=== PATIENT | male | born 1955 | race Caucasian/White ===

== ENCOUNTER 2017-12-31 14:17 | Emergency (ER) | payer MEDICARE ==
[~2017-12-31] VITALS: Ht 175.3 cm; Wt 113.4 kg
[2017-12-31] MEDS ORDERED: Magnesium 1GM/D5W 100ML PREMIX 200 ML IV ONE (14:38)
[2017-12-31] MEDS ORDERED: Magnesium 1GM/D5W 100ML PREMIX PIGGYBACK IV ONE (14:38)
--- NOTE | 2017-12-31 14:40 | NUR ---
62 Y/O MALE PLACED IN BED 12 C/O SOB. SEEN AT [facility] YESTERDAY FOR SAME COMPLAINT.
[2017-12-31] MEDS ORDERED: ALBUTEROL FS 2.5 MG/3 ML VIAL.NEB ONE (14:56)
[2017-12-31] MEDS ORDERED: IPRATROPIUM NEB FS 0.5 MG/2.5 ML AMPUL.NEB ONE (14:56)
[2017-12-31] MEDS ORDERED: ALBUTEROL FS 2.5 MG/3 ML VIAL.NEB NEB ONE (15:00)
[2017-12-31] MEDS ORDERED: IPRATROPIUM NEB FS 0.5 MG/2.5 ML AMPUL.NEB NEB ONE (15:00)
[2017-12-31] MEDS ORDERED: methylPREDNISolone SOD SUCC 125 MG/2ML VIAL IV ONE (15:00)
[2017-12-31 15:08] LABS: BASOPHILS # (AUTO) 0.1 /CMM (0.0-0.2); EOSINOPHILS % (AUTO) 1.5 % (0.0-6.0); HEMATOCRIT 47 % (39-51); HEMOGLOBIN 15.5 g/dL (13.5-17.5); LYMPHOCYTES # (AUTO) 1.6 /CMM (0.8-4.8); LYMPHOCYTES % (AUTO) 17.7 % (20.0-44.0); MEAN CORPUSCULAR HGB CONC 33 g/dl (31.0-36.0); MEAN CORPUSCULAR VOLUME 93 fL (80-96); MONOCYTES # (AUTO) 1.1 /CMM (0.1-1.30); MONOCYTES % (AUTO) 11.9 % (2.0-12.0); NEUTROPHILS # (AUTO) 6.1 /CMM (1.8-8.9); NEUTROPHILS % (AUTO) 67.9 % (43.0-81.0); PLATELET COUNT (AUTO) 307 /CMM (150-450)
[2017-12-31 15:17] LABS: CALCIUM, SERUM 8.9 mg/dL (8.5-10.1); CARBON DIOXIDE 37 mmol/L (21-32); CHLORIDE 102 mmol/L (98-107); GLUCOSE 100 mg/dL (74-106); POTASSIUM 4.1 mmol/L (3.5-5.1); SODIUM SERUM 139 mmol/L (136-145); UREA NITROGEN, BLOOD 23 mg/dL (7-18)
[2017-12-31 15:25] LABS: TROPONIN I < 0.017 ng/mL (0.00-0.056)
[2017-12-31 15:30] LABS: B-TYPE NATRIURETIC PEPTIDE 113 PG/ML (0-125)
[2017-12-31] MEDS ORDERED: methylPREDNISolone SOD SUCC 125 MG/2ML VIAL ONE (15:37)
--- NOTE | 2017-12-31 16:24 | NUR ---
PT RECEIVED MULTIPLE BREATHING TREATMENTS. H/L 20G PLACED RIGHT FOREARM. 1 GRAM MAG GIVEN. DX - SOB RESOLVED. ACI GIVEN. PT DISCHARGED HOME TO FOLLOW UP WITH PMD.
[2017-12-31 16:26] VITALS: BP 124/72
== END 2017-12-31 16:30 | disposition home or self-care (01) ==
LOC: ER 14:21
DX: J44.1 Chronic obstructive pulmonary disease with (acute) exacerbation (principal); I10 Essential (primary) hypertension; G62.9 Polyneuropathy, unspecified; E11.9 Type 2 diabetes mellitus without complications; Z98.890 Other specified postprocedural states; Z88.2 Allergy status to sulfonamides; Z88.1 Allergy status to other antibiotic agents
CPT/HCPCS: 36415; 71045; 80048; 83880; 84484; 85025; 93005; 94644; 96365; 96366; 96375; 99285; A4606; J2930; J3475; Z7610

== ENCOUNTER 2018-05-09 02:53 | Inpatient (IN) | payer MEDICARE ==
[~2018-05-09] VITALS: Ht 175.3 cm; Wt 123.4 kg
[2018-05-09] MEDS ORDERED: VANCOMYCIN 1 GM VIAL ONE (03:19)
[2018-05-09] MEDS ORDERED: VANCOMYCIN 1 GM in IV D5W 250 ML IV ONE (03:30)
[2018-05-09 03:37] LABS: BASOPHILS # (AUTO) 0.1 /CMM (0.0-0.2); BASOPHILS % (AUTO) 1.2 % (0.0-2.0); EOSINOPHILS % (AUTO) 6.6 % (0.0-6.0); HEMATOCRIT 44 % (39-51); HEMOGLOBIN 14.5 g/dL (13.5-17.5); LYMPHOCYTES # (AUTO) 1.9 /CMM (0.8-4.8); LYMPHOCYTES % (AUTO) 21.7 % (20.0-44.0); MEAN CORPUSCULAR HGB CONC 33 g/dl (31.0-36.0); MEAN CORPUSCULAR VOLUME 95 fL (80-96); MONOCYTES # (AUTO) 1.1 /CMM (0.1-1.30); MONOCYTES % (AUTO) 12.3 % (2.0-12.0); NEUTROPHILS # (AUTO) 5.1 /CMM (1.8-8.9); NEUTROPHILS % (AUTO) 58.2 % (43.0-81.0); PLATELET COUNT (AUTO) 287 /CMM (150-450); RED BLOOD CELL COUNT(AUTO) 4.67 MIL/uL (4.5-6.0); WHITE BLOOD COUNT (AUTO) 8.8 K/uL (4.3-11.0)
--- NOTE | 2018-05-09 03:40 | NUR ---
BBSELF FROM HOME C/C R FOOT/LOWER LEG SWELLING X2 WEEKS, PAIN 5/10 IN R FOOT. PT IS AAOX4. NO S/S OF ACUTE DISTRESS NOTED. NO RESPIRATORY DISTRESS NOTED. PT PLACED ON HAT BLOCK BENCH HAND AND POX. PT SAFETY AND COMFORT MEASURES IN PLACE.
[2018-05-09 03:49] LABS: CALCIUM, SERUM 8.5 mg/dL (8.5-10.1); CARBON DIOXIDE 32 mmol/L (21-32); CHLORIDE 104 mmol/L (98-107); GLUCOSE 88 mg/dL (74-106); POTASSIUM 3.8 mmol/L (3.5-5.1); SODIUM SERUM 142 mmol/L (136-145); UREA NITROGEN, BLOOD 26 mg/dL (7-18)
[2018-05-09 04:01] LABS: ALANINE AMINOTRANSFERASE 23 U/L (12-78); ALBUMIN 3.8 g/dL (3.4-5.0); ALKALINE PHOSPHATASE 96 U/L (46-116); ASPARTATE AMINOTRANSFERASE 15 U/L (15-37); B-TYPE NATRIURETIC PEPTIDE 79 PG/ML (0-125); BILIRUBIN,DIRECT 0.1 mg/dL (0.0-0.2); BILIRUBIN,TOTAL 0.2 mg/dL (0.2-1.0); TOTAL PROTEIN, SERUM 7.1 g/dL (6.4-8.2)
--- NOTE | 2018-05-09 05:11 | NUR ---
REPORT GIVEN TO MELQUIADES RIZZO FOR RILEY
[2018-05-09] MEDS ORDERED: ARIP5TAB10 PO (05:31)
[2018-05-09] MEDS ORDERED: AMLO10TA7 PO (05:31)
[2018-05-09] MEDS ORDERED: TAMS0.4C34 PO (05:31)
[2018-05-09] MEDS ORDERED: METF-440 PO (05:31)
[2018-05-09] MEDS ORDERED: ACYC800T PO (05:31)
[2018-05-09] MEDS ORDERED: GABA-532 PO (05:31)
[2018-05-09] MEDS ORDERED: [UNRECOGNIZED DRUG - CODE] PO (05:31)
[2018-05-09] MEDS ORDERED: BUDE10.22 INH (05:31)
[2018-05-09] MEDS ORDERED: ZOLP10TA6 PO (05:31)
[2018-05-09] MEDS ORDERED: PROC10TA13 PO (05:31)
[2018-05-09] MEDS ORDERED: ABAC1TAB3 PO (05:31)
[2018-05-09] MEDS ORDERED: CYAN100071 PO (05:31)
[2018-05-09] MEDS ORDERED: CARV25TA2 PO (05:31)
[2018-05-09] MEDS ORDERED: SERT100T PO (05:31)
[2018-05-09] MEDS ORDERED: NEVI400T4 PO (05:31)
[2018-05-09] MEDS ORDERED: ASPI-1169 PO (05:31)
[2018-05-09 05:45] VITALS: BP 138/91
--- NOTE | 2018-05-09 05:45 | NUR ---
RN MS ADMITTING NOTES RECEIVED PATIENT FROM ER TRANSFERRED VIA WHEELCHAIR SAFELY TRANSFERRED TO BED, AWAKE ALERT AND ORIENTED X4, RESPIRATIONS EVEN AND UNLABORED WITH EQUAL RISE AND FALL OF CHEST, C/O PAIN 5/10 AT THIS TIME TO RIGHT LEG, WILL AWAIT FOR MD ORDERS PER PATIENT ALSO RELATED TO NEUROPATHY. ORIENTED TO STAFF AND CALL LIGHT AND KEPT WITHIN REACH, IV SITE TO RIGHT AC #18 G INTACT AND PATENT, NO REDNESS, NO INFILTRATION, BODY ASSESSMENT DONE NOTED WITH RLE SWELLING/CELLULITIS, LEFT PLANTAR FOOT SCAB/CALLOUS AND BOTH BUTTOCK SCAB RASH, PICTURES TAKEN PLACED IN CHART BELONGINGS LIST DONE AND SIGNED, ALL NEEDS ATTENDED AT THIS TIME, WILL AWAIT FOR MD ORDERS, SAFETY PRECAUTIONS IN PLACE, LOW BED AND LOCKED, WILL CONTINUE TO MONITOR.
[2018-05-09] MEDS ORDERED: MAG HYDROX/AL HYDROX/SIMETH 30 ML UDC PO PRN (06:00)
[2018-05-09] MEDS ORDERED: IV NS 0.9% 1,000 ML IV PRN (06:00)
[2018-05-09] MEDS ORDERED: HYDROMORPHONE INJ 2 MG/ML DISP.SYRIN IV PRN (06:00)
[2018-05-09] MEDS ORDERED: ZOLPIDEM TARTRATE 5 MG TABLET PO PRN (06:00)
[2018-05-09] MEDS ORDERED: ONDANSETRON HCL/PF 4 MG/2 ML VIAL IVP PRN (06:00)
[2018-05-09] MEDS ORDERED: MAGNESIUM HYDROXIDE 30 ML UDC PO PRN (06:00)
[2018-05-09] MEDS ORDERED: ACETAMINOPHEN 325 MG TABLET PO PRN (06:00)
[2018-05-09] MEDS ORDERED: Z GUARD REMEDY 2 OZ OINT TP PRN (06:00)
--- NOTE | 2018-05-09 06:58 | NUR ---
RN MS CLOSING NOTES PATIENT IN BED AWAKE ALERT AND ORIENTED X 4 ABLE TO MAKE NEEDS KNOWN, TOILETING OFFERED, IV SITE REMAINS INTACT,PATIENT COMPLAINT OF PAIN TO RIGHT LEG 5/10 AWAITING FOR PAIN MEDICATION TO BE VERIFIED, ALL NEEDS ATTENDED AT THIS TIME, WILL CONTINUE TO MONITOR AND ENDORSE TO NEXT SHIFT.
--- NOTE | 2018-05-09 07:22 | NUR ---
RN MS NOTES UNABLE TO GIVE ROCEPHIN NOT VERIFIED ENDORSE TO NEXT SHIFT.
--- NOTE | 2018-05-09 07:30 | NUR ---
MS RN OPENING NOTES RECEIVED PT LAYING IN BED WITH HOB ELEVATED. PT IS A/O X4, AFEBRILE. RESPIRATIONS ARE EVEN AND UNLABORED, NOT IN ANY ACUTE DISTRESS NOTED. DENIES ANY PAIN, SOB, N/V. IV SITE TO RAC INTACT, NO INFILTRATION NOTED. DRESSING KEPT CLEAN AND DRY. SAFETY MEASURES ARE IN PLACE. INSTRUCTED PT TO USE CALL LIGHT WHEN ASSISTANCE IS NEEDED, CALL LIGHT IS LEFT WITHIN REACH. WILL MONITOR THROUGHOUT SHIFT FOR CONTINUITY OF CARE.
[2018-05-09 08:00] VITALS: BP 109/73
[2018-05-09] MEDS ORDERED: FEE PK DOSING 1 MIN EA MC ONE (08:21)
[2018-05-09] MEDS: PANTOPRAZOLE 40 MG TABLET.DR PO SCH (08:33)
--- NOTE | 2018-05-09 10:09 | NUR ---
MS RN NOTES-- CALLED PHARMACY, SPOKE W/ MAXIMILIAN, RE: MARY DUE AT 0900. PER MAXIMILIAN, SHE WILL SEND IT UP.
--- NOTE | 2018-05-09 10:24 | NUR ---
WOUND CARE CONSULT: PT PRESENTS WITH SWOLLEN RT FOOT. PT STATES THAT HE SEES A PODIATRY SURGEON AT [facility] AND WILL FOLLOW UP WITH HIM. RT FOOT ELEVATED ON PILLOWS. DEFER TO MD FOR RT FOOT SWELLING. PT INDEPENDENT WITH BED MOBILITY AND CONTINENT. PT DENIES ANY RASH TO BUTTOCKS AND DECLINED ASSESSMENT OF BUTTOCKS. WILL SEE PRN. Addendum: 05/09/18 at 1026 by CRISTINA CHUA WNDNU Amended: Links added.
--- NOTE | 2018-05-09 10:59 | NUR ---
MS RN NOTES-- ABX IS NOT AVAILABLE ON THE FLOOR AT THIS TIME STILL. CALLED PHARMACY, SPOKE W/ JACKLYN, STATED THEY WILL BRING ABX.
[2018-05-09] MEDS: CEFTRIAXONE 2 G in IV D5W 100 ML IV SCH (12:00)
[2018-05-09] MEDS: VANCOMYCIN 1.25 GM in IV D5W 500 ML IV SCH (14:26)
--- NOTE | 2018-05-09 14:41 | NUR ---
MS RN NOTES-- PT SEEN AND EXAMINED BY DR. HERNANDEZ W/ ORDERS FOR A HIGH CAMBOOT TO RLE, CRUTCHES FOR NWB TO RLE, PT EVAL. READ BACK AND VERIFIED ORDERS. NOTED AND CARRIED OUT.
[2018-05-09 16:00] VITALS: BP 139/91
[2018-05-09] MEDS ORDERED: LORAZEPAM 0.5 MG TABLET PO PRN (17:00)
[2018-05-09] MEDS: HYDROCODONE/APAP 5/325MG 1 EACH TABLET PO PRN (17:06)
--- NOTE | 2018-05-09 18:24 | NUR ---
MS RN CLOSING NOTES NEEDS MET AND RENDERED. PT IS A/O X4, AFEBRILE. RESPIRATIONS ARE EVEN AND UNLABORED, NOT IN ANY ACUTE DISTRESS NOTED. PT DENIES ANY PAIN AT THIS TIME, NO SOB, N/V. IV SITE TO RAC INTACT, NO INFILTRATION NOTED. DRESSING KEPT CLEAN AND DRY. SAFETY MEASURES ARE IN PLACE. REMINDED PT TO USE CALL LIGHT WHEN ASSISTANCE IS NEEDED, CALL LIGHT IS LEFT WITHIN REACH. WILL ENDORSE TO NEXT SHIFT FOR CONTINUITY OF CARE.
--- NOTE | 2018-05-09 19:21 | NUR ---
MS RN OPENING NOTES: RECEIVED PT ON ROOM AIR AND IS ASLEEP AT THIS TIME. NO SOB NOTED. NO S/S OF DISTRESS. PT HAS CAMBOOT ON RIGHT LEG. PT HAS IV AND R AC AND IS BEING INFUSED WITH IV NS AT 75ML/HR. BED KEPT IN OW, LOCKED POSITION, AND SIDE RAILS X 2UP. WILL CONTINUE TO MONITOR PT.
[2018-05-09 20:00] VITALS: BP 126/80
[2018-05-09] MEDS ORDERED: ALBUTEROL FS 2.5 MG/0.5 ML VIAL.NEB NEB PRN (20:30)
--- NOTE | 2018-05-09 21:48 | NUR ---
MS RN NOTES: PT REQUESTED FOR SLEEPING AID. PT WAS ADMINISTERED AMBIEN 5MG PO.
[2018-05-10] MEDS: VANCOMYCIN 1.25 GM in IV D5W 500 ML IV SCH ×2 (02:12→14:29)
[2018-05-10] MEDS: HYDROCODONE/APAP 5/325MG 1 EACH TABLET PO PRN ×2 (02:16→12:16)
--- NOTE | 2018-05-10 02:16 | NUR ---
MS RN NOTES: PT COMPLAINING OF HEADACHE AND BACK 7/10 PAIN. PT WAS ADMINISTERED NORCO 5 PO. WILL CONTINUE TO MONITOR.
[2018-05-10 04:19] VITALS: BP 134/89
--- NOTE | 2018-05-10 04:25 | NUR ---
MS RN NOTES: PT COMPLAINING OF 9/10 HEADACHE AND BACK PAIN. PT WAS ADMINISTERED DILAUDID 1MG IV. WILL CONTINUE TO MONITOR PT. PT PLACED ON 2LPM VIA NC WELL.
--- NOTE | 2018-05-10 06:27 | NUR ---
MS RN CLOSING NOTES: ALL NEEDS WERE ATTENDED AND ANTICIPATED FOR. PT ASLEEP AT THIS TIME AND RESTING COMFORTABLY. PT ON 2LPM VIA NC AND IS TOLERATING WELL. CAM BOOT ON RIGHT LOWER EXTREMITY IN PLACE. IV REMANS INTACT. CURRENTLY H/L. BED KEPT IN LOW, LOCKED POSITION, AND SIDE RAILS X 2UP. WILL ENDORSE TO AM NURSE FOR RILEY.
[2018-05-10 06:34] LABS: BASOPHILS % (AUTO) 0.6 % (0.0-2.0); EOSINOPHILS % (AUTO) 5.4 % (0.0-6.0); HEMATOCRIT 44 % (39-51); HEMOGLOBIN 14.8 g/dL (13.5-17.5); LYMPHOCYTES # (AUTO) 1.7 /CMM (0.8-4.8); LYMPHOCYTES % (AUTO) 21.7 % (20.0-44.0); MEAN CORPUSCULAR HGB CONC 33 g/dl (31.0-36.0); MEAN CORPUSCULAR VOLUME 94 fL (80-96); MONOCYTES # (AUTO) 0.7 /CMM (0.1-1.30); NEUTROPHILS # (AUTO) 5.1 /CMM (1.8-8.9); NEUTROPHILS % (AUTO) 63.3 % (43.0-81.0); PLATELET COUNT (AUTO) 276 /CMM (150-450); RED BLOOD CELL COUNT(AUTO) 4.69 MIL/uL (4.5-6.0)
[2018-05-10 06:39] LABS: CALCIUM, SERUM 8.1 mg/dL (8.5-10.1); CREATININE 0.9 mg/dL (0.6-1.3); MAGNESIUM 1.7 mg/dL (1.8-2.4); PHOSPHORUS 3.2 mg/dL (2.5-4.9); POTASSIUM 3.5 mmol/L (3.5-5.1)
[2018-05-10 06:57] LABS: THYROID STIMULATING HORMONE 3.342 uIU/mL (0.358-3.74)
--- NOTE | 2018-05-10 07:45 | NUR ---
ms rn received on bed, awake,alert,oriented x4,not in any form of distress, respirations even and unlabored,no sob noted, lungs are clear, abdomen soft,positive bowel sounds, denies pain at this time.right lower ext cellulitis w/ immobilizer on, will monitor patient's condition.
[2018-05-10 08:00] VITALS: BP 132/85
--- NOTE | 2018-05-10 09:00 | NUR ---
ms obrien breakfast served,due meds given,tolerated well.
[2018-05-10] MEDS: CEFTRIAXONE 2 G in IV D5W 100 ML IV SCH (09:24)
[2018-05-10] MEDS: PANTOPRAZOLE 40 MG TABLET.DR PO SCH (09:24)
[2018-05-10] MEDS: Magnesium 1GM/D5W 100ML PREMIX 100 ML IV SCH ×2 (10:12→11:08)
--- NOTE | 2018-05-10 11:12 | NUR ---
ms rn was seen by trudy, awaiting for orders.
[2018-05-10] MEDS ORDERED: AMOX-430 PO (12:04)
--- NOTE | 2018-05-10 15:00 | NUR ---
ms rn ready to go home, pictures take, refused to take picture at bilateral buttocks pigmentation.
--- NOTE | 2018-05-10 16:35 | NUR ---
ms rn vancomycin iv done, patient went home accompanied by friend, discharge instructions given,all needs attended.
== END 2018-05-10 17:07 | disposition home health service (06) | DRG 73 ==
LOC: ER 02:56 → MED 05:06
PROVIDERS: ADMIT Nurse Practitioner Acute Care; ATTEND Nurse Practitioner Acute Care
DX: E11.610 Type 2 diabetes mellitus with diabetic neuropathic arthropathy (principal); N17.0 Acute kidney failure with tubular necrosis; L03.115 Cellulitis of right lower limb; Z68.41 Body mass index [BMI] 40.0-44.9, adult; J45.909 Unspecified asthma, uncomplicated; I10 Essential (primary) hypertension; F41.9 Anxiety disorder, unspecified; E66.01 Morbid (severe) obesity due to excess calories; E88.81 Metabolic syndrome and other insulin resistance; Z87.442 Personal history of urinary calculi; Z87.01 Personal history of pneumonia (recurrent); Z88.2 Allergy status to sulfonamides; N40.0 Benign prostatic hyperplasia without lower urinary tract symptoms; F39 Unspecified mood [affective] disorder; G47.00 Insomnia, unspecified; Z79.84 Long term (current) use of oral hypoglycemic drugs; E11.42 Type 2 diabetes mellitus with diabetic polyneuropathy; G89.29 Other chronic pain; J44.9 Chronic obstructive pulmonary disease, unspecified; B00.9 Herpesviral infection, unspecified
CPT/HCPCS: 36415; 71045-TC; 73630-TC; 80048-TC; 80061-TC; 80076-TC; 80202-TC; 82962-TC; 83605-TC; 83735-TC; 83880; 84100-TC; 84443-TC; 84484-TC; 85025-TC; 85730-TC; 87040-TC; 87081-TC; 93307-TC; 93971-TC; G0378; J0696; J1170; J2405; J3370; J3475; J7030; J7060

== ENCOUNTER 2018-11-13 00:07 | Inpatient (IN) | payer MEDICARE ==
[~2018-11-13] VITALS: Ht 175.3 cm; Wt 128.8 kg
[~2018-11-13 00:07] MED LIST: ABAC1TAB3 PO; ACYC800T PO; AMLO10TA7 PO; AMOX-430 PO; ARIP5TAB10 PO; ASPI-1169 PO; BUDE10.22 INH; CARV25TA2 PO; CYAN100071 PO; GABA-532 PO; METF-440 PO; NEVI400T4 PO; PROC10TA13 PO; SERT100T PO; TAMS0.4C34 PO; ZOLP10TA6 PO; [UNRECOGNIZED DRUG - CODE] PO
--- NOTE | 2018-11-13 00:20 | NUR ---
PT BIBFRIEND C/O SOB/NAUSEA/L LEG PAIN/SWELLING/REDNESS X 3 DAYS. DENIES CP. L LEG REDNESS NOTED. PT HAS BOOT ON R FOOT. NAD NOTED. PT AOX4. PT O MONITOR IN BED 2 WITH FRIEND AT BEDSIDE. WILL CONTINUE TO MONITOR.
--- NOTE | 2018-11-13 00:34 | NUR ---
TECH AT BEDSIDE FOR EKG
--- NOTE | 2018-11-13 00:56 | NUR ---
BLOOD DRAWN AND GIVEN TO LAB
--- NOTE | 2018-11-13 00:59 | NUR ---
RADIOLOGY AT BEDSIDE FOR XRAY
[2018-11-13 01:00] LABS: BASOPHILS % (AUTO) 0.3 % (0.0-2.0); EOSINOPHILS % (AUTO) 0.2 % (0.0-6.0); HEMATOCRIT 41 % (39-51); LYMPHOCYTES # (AUTO) 0.8 /CMM (0.8-4.8); LYMPHOCYTES % (AUTO) 4.8 % (20.0-44.0); MEAN CORPUSCULAR HGB CONC 34 g/dl (31.0-36.0); MEAN CORPUSCULAR VOLUME 94 fL (80-96); MONOCYTES # (AUTO) 0.7 /CMM (0.1-1.30); MONOCYTES % (AUTO) 4.3 % (2.0-12.0); NEUTROPHILS # (AUTO) 15.4 /CMM (1.8-8.9); NEUTROPHILS % (AUTO) 90.4 % (43.0-81.0); PLATELET COUNT (AUTO) 213 /CMM (150-450)
[2018-11-13 01:09] LABS: CARBON DIOXIDE 30 mmol/L (21-32); CHLORIDE 98 mmol/L (98-107); CREATININE 1.7 mg/dL (0.6-1.3); GLUCOSE 133 mg/dL (74-106); POTASSIUM 3.7 mmol/L (3.5-5.1); SODIUM SERUM 136 mmol/L (136-145); UREA NITROGEN, BLOOD 30 mg/dL (7-18)
[2018-11-13 01:21] LABS: B-TYPE NATRIURETIC PEPTIDE 1372 PG/ML (0-125)
--- NOTE | 2018-11-13 01:36 | NUR ---
ULTRASOUND AT BEDSIDE
[2018-11-13] MEDS ORDERED: VANCOMYCIN 1 GM in IV D5W 250 ML IV STA (02:03)
[2018-11-13] MEDS ORDERED: PIPERACILLIN /TAZOBACTAM 3.375 G in IV D5W 50 ML IV STA (02:03)
[2018-11-13] MEDS ORDERED: PIPERACILLIN /TAZOBACTAM 3.375 G VIAL IV ONE (02:09)
[2018-11-13] MEDS ORDERED: VANCOMYCIN 1 GM VIAL ONE (02:09)
[2018-11-13] MEDS ORDERED: IV NS 0.9% 1,000 ML BAG IV ONE (02:30)
[2018-11-13] MEDS ORDERED: IV NS 0.9% 1,000 ML IV PRN (03:31)
[2018-11-13] MEDS ORDERED: Z GUARD REMEDY 2 OZ OINT TP PRN (04:00)
[2018-11-13] MEDS ORDERED: MAG HYDROX/AL HYDROX/SIMETH 30 ML UDC PO PRN (04:00)
[2018-11-13] MEDS ORDERED: ONDANSETRON HCL/PF 4 MG/2 ML VIAL IVP PRN (04:00)
[2018-11-13] MEDS ORDERED: MAGNESIUM HYDROXIDE 30 ML UDC PO PRN (04:00)
--- NOTE | 2018-11-13 04:22 | NUR ---
L HAND 18G IV INITIATED. PT TOLERATED WELL.
--- NOTE | 2018-11-13 04:35 | NUR ---
BED 108
--- NOTE | 2018-11-13 04:44 | NUR ---
REPORT GIVEN TO DAJUAN COOK FOR RILEY
[2018-11-13 05:06] LABS: APPEARANCE,URINE SL CLOUDY (CLEAR); BILIRUBIN,URINE 1+ (NEGATIVE); BLOOD, URINE TRACE Ery/uL (NEGATIVE); COLOR,URINE YELLOW (YELLOW); KETONES,URINE NEGATIVE (NEGATIVE); LEUKOCYTE ESTERASE ,URINE TRACE (NEGATIVE); NITRITE, URINE NEGATIVE (NEGATIVE); PROTEIN,URINE 1+ mg/dl (NEGATIVE); UGLUCOSE NEGATIVE (NEGATIVE); UROBILINOGEN,URINE 0.2 EU/dL (0.2)
--- NOTE | 2018-11-13 05:25 | NUR ---
RN NOTE RECEIVED PATIENT FROM ER, ALERT/ORIENTED X 4, NO CHEST PAIN NOTED, NO RESPIRATORY DISTRESS NOTED, DX SEPSIS/CELLULITIS OF THE LEFT LEG, NO NAUSEA, LEFT HAND 18 GAUGE AND RIGHT FOREARM 20 GAUGE PATENT AND INTACT, SR ON THE MONITOR, SKIN PICTURES TAKEN AND PLACED IN THE CHART, WILL CONTINUE TO MONITOR PATIENT
[2018-11-13 05:33] LABS: RBC,URINE 0-2 /HPF (0-2)
[2018-11-13 05:34] LABS: BACTERIA,URINE None seen /HPF (None Seen); MUCUS,URINE Rare /LPF (None Seen); SQUAMOUS EPITHELIAL CELL,UR Moderate /HPF (None Seen)
[2018-11-13 05:45] VITALS: BP 104/66
[2018-11-13] MEDS ORDERED: LORAZEPAM INJ 2 MG/ML VIAL IV ONE (06:00)
--- NOTE | 2018-11-13 07:30 | NUR ---
RN CLOSING NOTE PATIENT IN BED SLEEPING, A/O X3-4, NO CHEST PAIN NOTED, NO RESPIRATORY DISTRESS NOTED, DX SEPSIS/CELLULITIS OF THE LEFT LEG, NO NAUSEA, LEFT HAND 18 GAUGE AND RIGHT FOREARM 20 GAUGE PATENT AND INTACT, SR ON THE MONITOR, WILL ENDORSE TO AM RN FOR RILEY.
--- NOTE | 2018-11-13 07:30 | NUR ---
[facility] RN NOTE RECEIVED PATIENT IN BED, ASLEEP, AROUSES TO NAME AND TOUCH, ALERT/ORIENTED X 3, PARTNER AT BEDSIDE, ON 10 LPM NASAL MASK, BUT PATIENT REMOVES IT, SINUS RHYTHM HR 88, DENIES PAIN, WITH SHORTNESS OF BREATH, RFA G20 WITH NSA T 75 ML/HR INFUSING WELL, KEFT HAND G 18 FLUSHES WELL, BOTH SITES CLEAR, SEE NURSING FLOWSHEET FOR SKIN ISSUES, CELULITIS OF THE LEFT LEG, FOR WOUND CONSULT, REGULAR DIET, BRP, SAFETY MEASURES IN PLACE, BED LOW LOCKED, CALL LIGHT WITHIN REACH, WILL CONTINUE TO MONITOR PATIENT
[2018-11-13 08:00] VITALS: BP_SYST 141; BP_SYST 92; BP_DIAS 46; BP_DIAS 68
[2018-11-13 08:03] LABS: ALBUMIN 2.9 g/dL (3.4-5.0); BILIRUBIN,TOTAL 0.5 mg/dL (0.2-1.0); CREATININE 1.6 mg/dL (0.6-1.3); MAGNESIUM 1.4 mg/dL (1.8-2.4); PHOSPHORUS 3.5 mg/dL (2.5-4.9); POTASSIUM 3.8 mmol/L (3.5-5.1); TOTAL PROTEIN, SERUM 6.2 g/dL (6.4-8.2)
[2018-11-13] MEDS ORDERED: FEE PK DOSING 1 MIN EA MC ONE (08:29)
[2018-11-13] MEDS ORDERED: VANCOMYCIN 500 MG in IV D5W 100 ML IV ONE (09:00)
[2018-11-13 09:04] LABS: THYROID STIMULATING HORMONE 2.251 uIU/mL (0.358-3.74)
[2018-11-13] MEDS ORDERED: MULT-661 PO (09:21)
[2018-11-13] MEDS ORDERED: SERT100T12 PO (09:21)
[2018-11-13] MEDS ORDERED: PROC10TA13 PO (09:21)
[2018-11-13] MEDS ORDERED: NEVI400T4 PO (09:21)
[2018-11-13] MEDS ORDERED: ALBU18HF2 IH (09:21)
[2018-11-13] MEDS ORDERED: ABAC1TAB17 PO (09:21)
[2018-11-13] MEDS ORDERED: CYAN500T65 PO (09:21)
[2018-11-13] MEDS ORDERED: TEST200V3 IM (09:21)
[2018-11-13] MEDS ORDERED: [UNRECOGNIZED DRUG - CODE] PO (09:21)
[2018-11-13] MEDS ORDERED: CALC-15 PO (09:21)
[2018-11-13] MEDS ORDERED: METF-440 PO (09:21)
[2018-11-13] MEDS ORDERED: CARV25TA PO (09:21)
[2018-11-13] MEDS ORDERED: TAMS-12 PO (09:21)
[2018-11-13] MEDS ORDERED: ZOLP10TA6 PO (09:21)
[2018-11-13] MEDS ORDERED: GABA-534 PO (09:21)
--- NOTE | 2018-11-13 09:30 | NUR ---
FRANK RN NOTES PATIENT SEEN BY ESTELA RAMSEY EARLIER.
[2018-11-13] MEDS: PIPERACILLIN /TAZOBACTAM 3.375 G in IV D5W 100 ML IV SCH ×2 (09:51→17:00)
[2018-11-13 10:25] LABS: BASOPHILS % (AUTO) 0.3 % (0.0-2.0); EOSINOPHILS % (AUTO) 0.3 % (0.0-6.0); HEMATOCRIT 39 % (39-51); HEMOGLOBIN 12.8 g/dL (13.5-17.5); LYMPHOCYTES # (AUTO) 0.9 /CMM (0.8-4.8); LYMPHOCYTES % (AUTO) 5.6 % (20.0-44.0); MEAN CORPUSCULAR HGB CONC 33 g/dl (31.0-36.0); MEAN CORPUSCULAR VOLUME 96 fL (80-96); MONOCYTES % (AUTO) 6.1 % (2.0-12.0); NEUTROPHILS # (AUTO) 14.4 /CMM (1.8-8.9); NEUTROPHILS % (AUTO) 87.7 % (43.0-81.0); PLATELET COUNT (AUTO) 186 /CMM (150-450); RED BLOOD CELL COUNT(AUTO) 4.08 MIL/uL (4.5-6.0); WHITE BLOOD COUNT (AUTO) 16.4 K/uL (4.3-11.0)
[2018-11-13 10:45] LABS: ABG OXYGEN SATURATION 96.4 % (92.0-98.5); ABG PCO2 41.8 mmHg (35.0-45.0); ABG PH 7.349 (7.350-7.450); ABG PO2 89.9 mmHg (75.0-100.0); AaDO2 291.9 mmHg; COHb 1.2 % (0.5-1.5); MetHb 0.3 % (0.0-1.5); SITE, ABG Left Radial; VENT MODE, BG 10L SM
[2018-11-13] MEDS: ALBUTEROL FS 2.5 MG/0.5 ML VIAL.NEB NEB SCH ×3 (11:19→20:28)
[2018-11-13] MEDS: FUROSEMIDE 40 MG/4 ML VIAL IV SCH (11:22)
[2018-11-13] MEDS: ENOXAPARIN SODIUM 40 MG/0.4 ML DISP.SYRIN SQ SCH (11:22)
[2018-11-13] MEDS ORDERED: Medication Not On Formulary EA (Testosterone Cypionate 200 MG) IM SCH (11:30)
[2018-11-13] MEDS: Magnesium 1GM/D5W 100ML PREMIX 100 ML IV SCH ×2 (11:54→12:08)
[2018-11-13 12:00] VITALS: BP 132/82
[2018-11-13] MEDS: CALCIUM CARB 600MG /VIT D 1 EACH TABLET PO SCH (12:07)
[2018-11-13 12:28] LABS: BAND % (MANUAL) 10 % (0.0-5.0); EOSINOPHILS % (MANUAL) 1 % (0-4); LYMPHOCYTES % (MANUAL) 6 % (16-48); MONOCYTES % (MANUAL) 6 % (0-11.0); NEUTROPHILS % (MANUAL) 77 (42-76)
[2018-11-13] MEDS ORDERED: PIPERACILLIN /TAZOBACTAM 3.375 G in IV D5W 50 ML IV SCH (13:00)
[2018-11-13] MEDS ORDERED: LORAZEPAM INJ 2 MG/ML VIAL IV PRN (15:00)
--- NOTE | 2018-11-13 15:49 | NUR ---
FRANK RN NOTES PER ESTELA RAMSEY DIRECTOR OF INTERCOLLEGIATE ATHLETICS, DO WOUND CULTURE ON LEFT LEG, KRAIG ARAIZA TO SEE PATIENT, CALL CRISIS TEAM IF PT STILL WANTS TO GO AMA.
[2018-11-13 16:00] VITALS: BP_SYST 132; BP_SYST 145; BP_DIAS 82; BP_DIAS 98
--- NOTE | 2018-11-13 16:05 | NUR ---
FRANK RN NOTES INFORMED ESTELA RAMSEY, PATIENT WANTS TO GO AMA
--- NOTE | 2018-11-13 16:24 | NUR ---
[facility]ANK RN NOTES SPOKE WITH ANTHONY FOR INTAKE, PER HER, SHE SPOKE WITH REBECCA CEJA, CRISIS TEAM CAN ONLY SEE PATIENT IF PATIENT IS SUICIDAL OR GRAVELY DISABLED. RELAYED TO ESTELA RAMSEY.
--- NOTE | 2018-11-13 17:45 | NUR ---
FRANK RN NOTES PATIENT PULLED HIS IV OUT BOTH IV SITES. REFUSED TO PUT IT BACK. REFUSED ALL MEDICATIONS AND TREATMENTS. NOTIFIED .
--- NOTE | 2018-11-13 19:22 | NUR ---
FRANK RN NOTES NANCI PATIENT'S FRIEND NOW AT BEDSIDE AND PATIENT NOW AGREED TO HAVE IV REINSERTED. CARE ENDORSED TO NEXT SHIFT FOR RILEY.
[2018-11-13 20:00] VITALS: BP 155/94
--- NOTE | 2018-11-13 20:00 | NUR ---
FRANK RN NOTE PT IN BED AWAKE. A/O X 2, GETTING SOB ON EXCERPTION. ON O2 4L VIA N/C. LEFT LEG SWOLLEN, OOZING WITH BLISTERS. KEPT THE LOWER EXTREMITIES ELEVATED. ALL NEEDS ATTENDED. PT PULLED IV LINES OUT PER DAY SHIFT NURSE. WILL TRY TO REINSERT NEW LINE. SIDE RAILS UP X 2 AND CALL LIGHT WITHIN REACH. CONTINUE TO MONITOR HIM. Addendum: 11/14/18 at 0336 by ZACHARIAH BRADFORD RN CHARTED ACCIDENTLY UNDER WRONG EMPLOYEE.
[2018-11-13] MEDS: CARVEDILOL 12.5 MG TABLET PO SCH (20:31)
[2018-11-13] MEDS: HYDROCODONE/APAP 5/325MG 1 EACH TABLET PO PRN (20:32)
[2018-11-13] MEDS: TAMSULOSIN 0.4 MG CAP.SR.24H PO SCH (21:42)
[2018-11-13] MEDS: GABAPENTIN 300 MG CAPSULE PO SCH (21:42)
[2018-11-14] VITALS (7 sets, daily range): BP systolic 98–130; BP diastolic 60–85
[2018-11-14] MEDS: PIPERACILLIN /TAZOBACTAM 3.375 G in IV D5W 100 ML IV SCH ×3 (01:09→16:11)
[2018-11-14] MEDS: ZOLPIDEM TARTRATE 5 MG TABLET PO PRN ×2 (02:14→21:27)
--- NOTE | 2018-11-14 05:00 | NUR ---
FRANK RN NOTE WOUND SPECIMEN COLLECTED FROM LT LOWER LEG OPEN BLISTER. ALSO TX GIVEN TO THE WOUNDS ORDERED.
[2018-11-14 05:12] LABS: *BASOS 0 % (Not Estab.); *EOS 0 % (Not Estab.); *HCT 39.4 % (37.5-51.0); *HGB 13.6 g/dL (13.0-17.7); *IMMATURE GRANULOCYTES 0 % (Not Estab.); *LYMPHOCYTES 6 % (Not Estab.); *LYMPHS, ABSOLUTE 1.1 x10E3/uL (0.7-3.1); *MCHC 34.5 g/dL (31.5-35.7); *MCV 90 fL (79-97); *MONOCYTES 6 % (Not Estab.); *MONOS, ABSOLUTE 1.3 x10E3/uL (0.1-0.9); *NEUTROPHILS 88 % (Not Estab.); *NEUTROPHILS, ABSOLUTE 17.7 x10E3/uL (1.4-7.0); *PLT 258 x10E3/uL (150-450); *RBC 4.39 x10E6/uL (4.14-5.80); *RDW 15.6 % (12.3-15.4)
[2018-11-14] MEDS: VANCOMYCIN 1.5 GM in IV D5W 500 ML IV SCH (05:41)
--- NOTE | 2018-11-14 07:00 | NUR ---
BRANCH ADMINISTRATOR NOTE PT IN BED ASLEEP, AROUSABLE. NO DISTRESS OR DISCOMFORT NOTED. DENIES PAIN. VANCO IV INFUSING WELL, NO S/S OF INFILTRATION NOTED. DRESSING ON LT LOWER LEG INTACT AND CLEAN. ON TELE SINUS TACH HR 101. SIDE RAILS UP X 2 AND CALL LIGHT WITHIN REACH. WILL ENDORSE TO DAY SHIFT NURSE FOR CONTINUE TO CARE.
[2018-11-14 07:51] LABS: CALCIUM, SERUM 8.3 mg/dL (8.5-10.1); CREATININE 1.1 mg/dL (0.6-1.3); MAGNESIUM 1.6 mg/dL (1.8-2.4); POTASSIUM 3.5 mmol/L (3.5-5.1)
[2018-11-14 07:55] LABS: BASOPHILS # (AUTO) 0.1 /CMM (0.0-0.2); BASOPHILS % (AUTO) 0.4 % (0.0-2.0); EOSINOPHILS % (AUTO) 0.1 % (0.0-6.0); HEMATOCRIT 39 % (39-51); HEMOGLOBIN 13.1 g/dL (13.5-17.5); LYMPHOCYTES # (AUTO) 1.2 /CMM (0.8-4.8); LYMPHOCYTES % (AUTO) 6.1 % (20.0-44.0); MEAN CORPUSCULAR HGB CONC 33 g/dl (31.0-36.0); MEAN CORPUSCULAR VOLUME 93 fL (80-96); MONOCYTES # (AUTO) 1.7 /CMM (0.1-1.30); MONOCYTES % (AUTO) 8.7 % (2.0-12.0); NEUTROPHILS # (AUTO) 16.4 /CMM (1.8-8.9); NEUTROPHILS % (AUTO) 84.7 % (43.0-81.0); PLATELET COUNT (AUTO) 234 /CMM (150-450); RED BLOOD CELL COUNT(AUTO) 4.23 MIL/uL (4.5-6.0); WHITE BLOOD COUNT (AUTO) 19.4 K/uL (4.3-11.0)
[2018-11-14] MEDS: ALBUTEROL FS 2.5 MG/0.5 ML VIAL.NEB NEB SCH ×3 (07:58→20:24)
--- NOTE | 2018-11-14 08:00 | NUR ---
SERVICE LINE LAYER NOTES RECEIVED PT IN BED ALERT ORIENTED X3. ON -4L- O2 NASAL CANNULA WITH HUMIDIFIER, LABORED BREATHING NOTES, PUT PT ON HIGH POSITION ALL SAFETY PRECAUTIONS MET. BED LOCKED AT THE LOWEST POSITION. RAILS UPX2. CALL LIGHT IN REACH. PT IS SINUS RHYTHM HR 99. IV SITE IS INTACT ON LEFT FOREARM, FLUSHED WELL. LEFT LEG WITH - DRESSING INTACT. DISCUSS THE PLAN OF CARE WITH PT , WILL CONT TO MONITOR CLOSELY
[2018-11-14] MEDS: FUROSEMIDE 40 MG/4 ML VIAL IV SCH (08:27)
[2018-11-14] MEDS: ARIPIPRAZOLE 5 MG TABLET PO SCH (08:28)
[2018-11-14] MEDS: ASPIRIN 81 MG TAB.CHEW PO SCH (08:28)
[2018-11-14] MEDS: AMLODIPINE BESYLATE 10 MG TABLET PO SCH (08:29)
[2018-11-14] MEDS: CARVEDILOL 12.5 MG TABLET PO SCH ×2 (08:30→21:00)
[2018-11-14] MEDS: MULTIVIT W/MINERALS 1 TAB TABLET PO SCH (08:30)
[2018-11-14] MEDS: ENOXAPARIN SODIUM 40 MG/0.4 ML DISP.SYRIN SQ SCH (08:31)
[2018-11-14] MEDS: CALCIUM CARB 600MG /VIT D 1 EACH TABLET PO SCH (08:38)
[2018-11-14] MEDS: ACYCLOVIR 800 MG TABLET PO SCH (08:38)
[2018-11-14] MEDS ORDERED: SERTRALINE HCL 50 MG TABLET PO SCH (09:00)
[2018-11-14] MEDS: CYANOCOBALAMIN 500 MCG TABLET PO SCH (09:31)
--- NOTE | 2018-11-14 10:38 | NUR ---
FIRE EXTINGUISHER MECHANIC NOTE FAWN ENGRAVING PATTERNMAKER SAIL REPAIRER SEEN PATIENT AT BEDSIDE ,LT LEG CHECKED AND DRESSING CHANGED
--- NOTE | 2018-11-14 10:48 | NUR ---
COMBINATION PRESSER NOTES PSYCHIATRIST AND RESTORATION SILVERSMITH AT BED SIDE NOTIFIED SOB AND PAIN . DR OROURKE RESTORATION SILVERSMITH STATED THAT WILL ADJUST MEDICATION FOR PAIN . CONTINUE TO GIVE HIM O2. AWARE THAT PT IS ON 4 L O2.
--- NOTE | 2018-11-14 11:15 | NUR ---
BUSINESS SYSTEMS DEVELOPER NOTES CALLED PT`S FRIEND, NANCI, LEFT A VOICE MAIL TO BRING THE HOME MEDICATION TO [facility].
[2018-11-14] MEDS: Magnesium 1GM/D5W 100ML PREMIX 100 ML IV SCH ×2 (11:28→12:49)
[2018-11-14] MEDS ORDERED: HYDROMORPHONE INJ 0.5 MG/0.5 ML SYRINGE IV PRN (11:30)
[2018-11-14 12:06] LABS: *% CD 4 POS. LYMPH 25.7 % (30.8-58.5); *% CD 8 POS. LYMPH 36.7 % (12.0-35.5); *ABSOLUTE CD 4 HELPER 283 /uL (359-1519); *ABSOLUTE CD 8 SUPPRESSOR 404 /uL (109-897)
[2018-11-14] MEDS ORDERED: CT SWABBABLE VALVE TRANS SET 1 EA INFUS.SET MC ONE (12:12)
[2018-11-14] MEDS ORDERED: IV NS 0.9% 250 ML IV ONE (12:12)
[2018-11-14] MEDS ORDERED: IOHEXOL-300 100 ML VIAL IV ONE (12:12)
--- NOTE | 2018-11-14 12:32 | NUR ---
PURCHASING CONTRACTING CLERK NOTES PT WAS TAKEN FOR LEG CT SCAN.
[2018-11-14 12:37] LABS: LYMPHOCYTES % (MANUAL) 5 % (16-48); MONOCYTES % (MANUAL) 7 % (0-11.0); NEUTROPHILS % (MANUAL) 88 (42-76)
[2018-11-14] MEDS: HYDROMORPHONE 1 MG/1 ML DISP.SYRIN IV PRN (12:55)
--- NOTE | 2018-11-14 13:00 | NUR ---
telecine operator note Dilaudid 0.5mg ivp given as ordered bp 115/78 sat 93% ,will monitor
--- NOTE | 2018-11-14 18:02 | NUR ---
REED REPAIRER NOTE ARTERIAL LT LEG DOING NOW
--- NOTE | 2018-11-14 20:00 | NUR ---
GENERAL LITHOGRAPHIC WORKER NOTE PT IN BED AWAKE. A/O X 2, NO SOB, NO DISTRESS OR DISCOMFORT NOTED. DENIES PAIN. ON O2 4L VIA N/C. LEFT LEG SWOLLEN, OOZING WITH BLISTERS. DRESSING INTACT/CLEAN/DRY. KEPT THE LOWER EXTREMITIES ELEVATED. ALL NEEDS ATTENDED. LT HAND S/L INTACT AND PATENT. SIDE RAILS UP X 2 AND CALL LIGHT WITHIN REACH. VSS. CONTINUE TO MONITOR HIM.
[2018-11-14] MEDS: GABAPENTIN 300 MG CAPSULE PO SCH (21:26)
[2018-11-14] MEDS: TAMSULOSIN 0.4 MG CAP.SR.24H PO SCH (21:27)
[2018-11-15] VITALS: BP 97/68
[2018-11-15] MEDS: PIPERACILLIN /TAZOBACTAM 3.375 G in IV D5W 100 ML IV SCH ×3 (00:32→18:20)
[2018-11-15 04:00] VITALS: BP 91/51
[2018-11-15 05:42] LABS: CALCIUM, SERUM 8.3 mg/dL (8.5-10.1); CREATININE 1.3 mg/dL (0.6-1.3); MAGNESIUM 1.9 mg/dL (1.8-2.4)
--- NOTE | 2018-11-15 06:35 | NUR ---
EXTERIOR DESIGNER NOTE PT IN BED ASLEEP, AROUSABLE. NO DISTRESS OR DISCOMFORT NOTED. DENIES PAIN. LT HAND SL INTACT AND PATENT. ON TELE SR 82. LT LOWER LEG KEPT IT ELEVATED. SIDE RAILS UP X 2 AND CALL LIGHT WITHIN REACH.
[2018-11-15] MEDS: VANCOMYCIN 1.5 GM in IV D5W 500 ML IV SCH (06:45)
[2018-11-15] MEDS: ALBUTEROL FS 2.5 MG/0.5 ML VIAL.NEB NEB SCH ×3 (07:13→19:30)
[2018-11-15 08:00] VITALS: BP 100/64
--- NOTE | 2018-11-15 08:00 | NUR ---
HEADER SETUP OPERATOR INITIAL NOTE RECEIVED PATIENT RESTING. C/O LOWER BACK PAIN 11/28. DENIES SOB AT THIS TIME. NO RESPIRATORY DISTRESS NOTED, ON 5LPMO2 VIA NC. SKIN WARM AND DRY TO TOUCH. ON TELE MONITOR SR. NOTED WITH BLE SWELLING. HOB ELEVATED. SIDE RAILS UP AND LOCKED. BED KEPT AT LOWEST POSITION. CALL LIGHT KEPT WITHIN EASY REACH. WILL CONTINUE TO MONITOR.
[2018-11-15] MEDS: HYDROCODONE/APAP 5/325MG 1 EACH TABLET PO PRN (08:33)
[2018-11-15] MEDS: FUROSEMIDE 40 MG/4 ML VIAL IV SCH (09:00)
[2018-11-15] MEDS: CARVEDILOL 12.5 MG TABLET PO SCH ×2 (09:00→21:00)
[2018-11-15] MEDS: AMLODIPINE BESYLATE 10 MG TABLET PO SCH (09:00)
[2018-11-15] MEDS: CYANOCOBALAMIN 500 MCG TABLET PO SCH (09:24)
[2018-11-15] MEDS: SERTRALINE HCL 50 MG TABLET PO SCH (09:24)
[2018-11-15] MEDS: ENOXAPARIN SODIUM 40 MG/0.4 ML DISP.SYRIN SQ SCH (09:25)
[2018-11-15] MEDS: ACYCLOVIR 800 MG TABLET PO SCH (09:27)
[2018-11-15] MEDS: ASPIRIN 81 MG TAB.CHEW PO SCH (09:27)
[2018-11-15] MEDS: ARIPIPRAZOLE 5 MG TABLET PO SCH (09:27)
[2018-11-15] MEDS: MULTIVIT W/MINERALS 1 TAB TABLET PO SCH (09:27)
[2018-11-15] MEDS: CALCIUM CARB 600MG /VIT D 1 EACH TABLET PO SCH (09:28)
--- NOTE | 2018-11-15 09:30 | NUR ---
MS RN NOTE BLOOD PRESSURE MEDICATIONS AND LASIX HELD AT THIS TIME. BP LOW. WILL CONTINUE TO MONITOR.
[2018-11-15] MEDS: POTASSIUM CHLORIDE 20 MEQ TAB.PRT.SR PO SCH ×3 (10:47→18:54)
[2018-11-15 16:00] VITALS: BP 115/76
--- NOTE | 2018-11-15 16:54 | NUR ---
TEXTED DR. MARROQUIN FOR MRI APPROVAL.
[2018-11-15] MEDS: ACETAMINOPHEN 325 MG TABLET PO PRN (17:00)
[2018-11-15] MEDS: CLINDAMYCIN 600 MG in IV NS 0.9% 50 ML IV SCH (18:23)
[2018-11-15] MEDS: ABACAVIR LAMIVUDINE PO SCH (18:32)
[2018-11-15 20:00] VITALS: BP 99/55
--- NOTE | 2018-11-15 20:44 | NUR ---
MS RN CLOSING NOTE PATIENT KEPT CLEAN AND DRY. ALL DUE MEDS GIVEN. NO C/O RESPIRATORY DISTRESS. WOUND TREATMENT DONE. ALL NEEDS ANTICIPATED AND MET. SIGNIFICANT OTHER BROUGHT IN HOME HIV MEDICATION AND GIVEN TO PHARMACY. FOR MRI OF LOWER EXTREMITY. PATIENT AWARE. PER MRI UNIT, TECH NOT AVAILABLE AND WILL CALL WHEN A TECH IS AVAILABLE TO TAKE PATIENT. WITH PERIPHERAL IV PATENT AND INTACT, PER PATIENT AND SIGNIFICANT OTHER PATIENT IS A HARD STICK AND WAS POKED MANY TIMES. ANTIBIOTICS RUNNING. INFORMED NIGHT NURSE TO GIVE VANCOMYCIN WHEN OTHER ANTIBIOTICS ARE FINISHED. PATIENT WITH POOR APPETITE. HOB ELEVATED. BLE ELEVATED. SIDE RAILS UP AND LOCKED. CALL LIGHT KEPT WITHIN EASY REACH. CONTINUITY OF ARE ENDORSED TO PM NURSE.
[2018-11-15] MEDS: VANCOMYCIN 1.25 GM in IV D5W 500 ML IV SCH (21:30)
[2018-11-15] MEDS: GABAPENTIN 300 MG CAPSULE PO SCH (22:52)
[2018-11-15] MEDS: TAMSULOSIN 0.4 MG CAP.SR.24H PO SCH (22:52)
[2018-11-15] MEDS: ZOLPIDEM TARTRATE 5 MG TABLET PO PRN (22:52)
[2018-11-16] MEDS: PIPERACILLIN /TAZOBACTAM 3.375 G in IV D5W 100 ML IV SCH ×3 (00:48→16:30)
[2018-11-16] MEDS: CLINDAMYCIN 600 MG in IV NS 0.9% 50 ML IV SCH ×2 (00:48→09:55)
[2018-11-16] MEDS: HYDROCODONE/APAP 5/325MG 1 EACH TABLET PO PRN ×2 (05:10→14:32)
[2018-11-16] MEDS: VANCOMYCIN 1.25 GM in IV D5W 500 ML IV SCH ×4 (06:00→20:03)
[2018-11-16 07:36] LABS: BASOPHILS # (AUTO) 0.1 /CMM (0.0-0.2); BASOPHILS % (AUTO) 0.6 % (0.0-2.0); EOSINOPHILS % (AUTO) 1.1 % (0.0-6.0); HEMATOCRIT 38 % (39-51); HEMOGLOBIN 12.4 g/dL (13.5-17.5); LYMPHOCYTES # (AUTO) 1.2 /CMM (0.8-4.8); LYMPHOCYTES % (AUTO) 7.9 % (20.0-44.0); MEAN CORPUSCULAR HGB CONC 33 g/dl (31.0-36.0); MEAN CORPUSCULAR VOLUME 94 fL (80-96); MONOCYTES # (AUTO) 1.9 /CMM (0.1-1.30); MONOCYTES % (AUTO) 13.3 % (2.0-12.0); NEUTROPHILS # (AUTO) 11.3 /CMM (1.8-8.9); NEUTROPHILS % (AUTO) 77.1 % (43.0-81.0); PLATELET COUNT (AUTO) 249 /CMM (150-450); RED BLOOD CELL COUNT(AUTO) 4.02 MIL/uL (4.5-6.0); WHITE BLOOD COUNT (AUTO) 14.6 K/uL (4.3-11.0)
[2018-11-16 08:01] LABS: CALCIUM, SERUM 8.2 mg/dL (8.5-10.1); MAGNESIUM 1.5 mg/dL (1.8-2.4); PHOSPHORUS 2.7 mg/dL (2.5-4.9); POTASSIUM 3.5 mmol/L (3.5-5.1)
[2018-11-16] MEDS: ALBUTEROL FS 2.5 MG/0.5 ML VIAL.NEB NEB SCH ×3 (08:03→19:30)
[2018-11-16] MEDS: MULTIVIT W/MINERALS 1 TAB TABLET PO SCH (09:00)
[2018-11-16] MEDS: CALCIUM CARB 600MG /VIT D 1 EACH TABLET PO SCH (09:56)
[2018-11-16] MEDS: ARIPIPRAZOLE 5 MG TABLET PO SCH (09:56)
[2018-11-16] MEDS: FUROSEMIDE 40 MG/4 ML VIAL IV SCH (09:56)
[2018-11-16] MEDS: ABACAVIR LAMIVUDINE PO SCH (09:56)
[2018-11-16] MEDS: CARVEDILOL 12.5 MG TABLET PO SCH ×2 (09:57→21:00)
[2018-11-16] MEDS: CYANOCOBALAMIN 500 MCG TABLET PO SCH (09:57)
[2018-11-16] MEDS: AMLODIPINE BESYLATE 10 MG TABLET PO SCH (09:58)
[2018-11-16] MEDS: ACYCLOVIR 800 MG TABLET PO SCH (09:59)
[2018-11-16] MEDS: ASPIRIN 81 MG TAB.CHEW PO SCH (09:59)
[2018-11-16] MEDS: SERTRALINE HCL 50 MG TABLET PO SCH (09:59)
[2018-11-16] MEDS: Magnesium 1GM/D5W 100ML PREMIX 100 ML IV SCH ×2 (10:00→14:18)
[2018-11-16] MEDS: ENOXAPARIN SODIUM 40 MG/0.4 ML DISP.SYRIN SQ SCH (10:00)
--- NOTE | 2018-11-16 10:49 | NUR ---
alert, oriented and appropriate, no complaint of pain on Left LE at this time, the site with noticeable swelling, red, and warm to touch. requested a PICC line for this time, who is on multiple ABX.
[2018-11-16 10:52] VITALS: BP 112/56
[2018-11-16] MEDS ORDERED: GADOTERIDOL 279.3 MG/ML VIAL IV ONE (11:10)
[2018-11-16 11:16] VITALS: BP 112/56
--- NOTE | 2018-11-16 13:35 | NUR ---
RT PATIENT REFUSED TX. HE JUST WANTED TO SLEEP. NO DISTRESS NOTED.
--- NOTE | 2018-11-16 15:41 | NUR ---
Midline nurse notified x2 about the midline, after multiple attempts to insert a new HL , unsuccessfully. All ABX still on hold at this time. Patient made aware. Left Lower extremity , oozy, wrapped up twice, after applied Xeroform on. Wound care needs to get involved for further treatment
[2018-11-16 16:00] VITALS: BP 117/75
[2018-11-16] MEDS: HYDROMORPHONE 1 MG/1 ML DISP.SYRIN IV PRN (16:31)
[2018-11-16] MEDS ORDERED: CLINDAMYCIN 600 MG in IV D5W 50 ML IV SCH (17:00)
--- NOTE | 2018-11-16 17:08 | NUR ---
Midline on JACQUE in, all ABX resumed by this time. Claimed NORCO did not help with pain. Dilaudid 0.5mg ivp given per patient's pain scale 7/10. will monitor his pain.
[2018-11-16] MEDS ORDERED: POLYVINYL ALCOHOL/POVIDONE 0.4 ML DROPERETTE EACHEYE PRN (17:30)
--- NOTE | 2018-11-16 19:48 | NUR ---
MS RN NOTES RECEIVED PT ON BED. A/O X4. ON NASAL CANNULA 2LPM NO RESPIRATORY DISTRESS NOTED. IV ACCESS JACQUE MIDLINE PATENT AND INTACT. HEAD OF BED ELEVATED. SIDE RAILS UP. CALL LIGHT WITHIN REACH. BED ALARM ON. WILL CONTINUE TO MONITOR PT CLOSELY.
[2018-11-16 20:00] VITALS: BP 95/52
[2018-11-16] MEDS ORDERED: VANCOMYCIN 1.25 GM in IV D5W 500 ML IV SCH (20:00)
--- NOTE | 2018-11-16 20:49 | NUR ---
RN NOTES CALLED PHARMACY REGARDING VANCOMYCIN 1.25GM IN 500ML D5W NOT SCANNED. PER PHARMACY MAXIMILIAN NON ADMIN VANCOMYCIN AND WRITE NURSES NOTE REGARDING THE MEDICATION NOT SCANNED BY AM NURSE. Addendum: 11/16/18 at 2245 by JERICA REED RN CALLED PHARMACY REGARDING VANCOMYCIN 1.25GM IN 500ML D5W NOT SCANNED, RUNNING AT 250CC/HR, THRU LEFT UPPER ARM MIDLINE. PER PHARMACIST EMILY YAO NON ADMIN ON THE EMAR SCHEDULED AT (1999) AND WRITE NURSES NOTE REGARDING THE MEDICATION NOT SCANNED BY AM NURSE. CHARGE NURSE MADE AWARE.
[2018-11-16] MEDS: TAMSULOSIN 0.4 MG CAP.SR.24H PO SCH (21:05)
[2018-11-16] MEDS: GABAPENTIN 300 MG CAPSULE PO SCH (21:05)
[2018-11-16] MEDS: ZOLPIDEM TARTRATE 5 MG TABLET PO PRN (21:52)
--- NOTE | 2018-11-16 22:30 | NUR ---
MS RN NOTES COREG NOT GIVEN LOW BLOOD PRESSURE
[2018-11-17] MEDS: PIPERACILLIN /TAZOBACTAM 3.375 G in IV D5W 100 ML IV SCH ×3 (01:08→17:49)
[2018-11-17] MEDS: HYDROMORPHONE 1 MG/1 ML DISP.SYRIN IV PRN (01:47)
[2018-11-17 04:00] VITALS: BP 118/64
[2018-11-17 07:09] LABS: CALCIUM, SERUM 8.3 mg/dL (8.5-10.1); MAGNESIUM 1.8 mg/dL (1.8-2.4); PHOSPHORUS 2.7 mg/dL (2.5-4.9); POTASSIUM 3.4 mmol/L (3.5-5.1)
--- NOTE | 2018-11-17 07:19 | NUR ---
MS RN NOTES NO ACUTE CHANGES NOTED DURING THE SHIFT. WOUND CARE DONE. PROVIDED COMFORT AND SAFETY. WILL ENDORSE TO THE AM NURSE FOR CONTINUITY OF CARE.
[2018-11-17] MEDS: ALBUTEROL FS 2.5 MG/0.5 ML VIAL.NEB NEB SCH ×2 (07:50→14:58)
[2018-11-17 08:00] VITALS: BP 146/90
[2018-11-17] MEDS: VANCOMYCIN 1.25 GM in IV D5W 500 ML IV SCH (08:41)
[2018-11-17] MEDS: FUROSEMIDE 40 MG/4 ML VIAL IV SCH (08:51)
[2018-11-17] MEDS: CYANOCOBALAMIN 500 MCG TABLET PO SCH (08:59)
[2018-11-17] MEDS: SERTRALINE HCL 50 MG TABLET PO SCH (08:59)
[2018-11-17] MEDS: ARIPIPRAZOLE 5 MG TABLET PO SCH (08:59)
[2018-11-17] MEDS: MULTIVIT W/MINERALS 1 TAB TABLET PO SCH (09:00)
[2018-11-17] MEDS: ASPIRIN 81 MG TAB.CHEW PO SCH (09:00)
[2018-11-17] MEDS: ACYCLOVIR 800 MG TABLET PO SCH (09:00)
[2018-11-17] MEDS: AMLODIPINE BESYLATE 10 MG TABLET PO SCH (09:00)
[2018-11-17] MEDS: CARVEDILOL 12.5 MG TABLET PO SCH (09:01)
[2018-11-17] MEDS: ABACAVIR LAMIVUDINE PO SCH (09:01)
[2018-11-17] MEDS: ACETAMINOPHEN 325 MG TABLET PO PRN (09:01)
[2018-11-17] MEDS: ENOXAPARIN SODIUM 40 MG/0.4 ML DISP.SYRIN SQ SCH (09:14)
[2018-11-17] MEDS: CALCIUM CARB 600MG /VIT D 1 EACH TABLET PO SCH (09:25)
--- NOTE | 2018-11-17 10:48 | NUR ---
MS RN NOTE PT AWAKE AND ALERT, SHOWING NO S/O DISTRESS, COMPLAINS OF BACK PAIN 4/10 RELIEVED WITH TYLENOL. LEFT LOWER LEG DRESSING CHANGED ORDERED. PT STATES THAT HE HAS A CONTACT LENSE ON HIS RIGHT EYE, PT'S EYE WAS IRRIGATED WITH SALINE AND RN LOOKED FOR CONTACT LENSE WHICH WAS NOT SEEN. THIS WAS ENDORSED TO DAJUAN KAUR WELL PT'S CARE. BED IN LOW AND LOCKED POSITION, CALL LIGHT WITHIN REACH, HEAD OF BED ELEVATED.
[2018-11-17] MEDS ORDERED: POTASSIUM CHLORIDE 20 MEQ TAB.PRT.SR PO SCH (12:00)
[2018-11-17] MEDS ORDERED: POTASSIUM CHLORIDE 20 MEQ TAB.PRT.SR PO ONE (14:00)
[2018-11-17] MEDS: HYDROCODONE/APAP 5/325MG 1 EACH TABLET PO PRN (14:09)
[2018-11-17 16:00] VITALS: BP 119/83
--- NOTE | 2018-11-17 16:40 | NUR ---
CALLED AND GAVE TELEPHONE REPORT TO JEANETH GRAFF AT [facility]
--- NOTE | 2018-11-17 18:17 | NUR ---
WALTER FERRARO EMT BY BEDSIDE. GAVE REPORT. ALL BELONGINGS ACCOUNTED FOR, DISCHARGE INSTRUCTIONS GIVEN. PHOTOS TAKEN AND PLACED INTO CHART.
--- NOTE | 2018-11-17 18:29 | NUR ---
LEFT UNIT VIA GURNEY IN STABLE CONDITION
== END 2018-11-17 18:30 | DRG 177 ==
LOC: ER 00:09 → TELE-TD 04:31 → TELE1 11-14 10:01 → MEDSG1 11-15 08:32
PROVIDERS: ADMIT Nurse Practitioner Acute Care; ATTEND Nurse Practitioner Acute Care
PROC: 05H633Z Insertion of Infusion Device into Left Subclavian Vein, Percutaneous Approach (ICD-10-PCS; principal; 2018-11-16)
PROC: B547ZZA Ultrasonography of Left Subclavian Vein, Guidance (ICD-10-PCS; 2018-11-16)
DX: J15.6 Pneumonia due to other Gram-negative bacteria (principal); N17.0 Acute kidney failure with tubular necrosis; I50.33 Acute on chronic diastolic (congestive) heart failure; L03.116 Cellulitis of left lower limb; I13.0 Hypertensive heart and chronic kidney disease with heart failure and stage 1 through stage 4 chronic kidney disease, or unspecified chronic kidney disease; E87.1 Hypo-osmolality and hyponatremia; N39.0 Urinary tract infection, site not specified; Z68.41 Body mass index [BMI] 40.0-44.9, adult; F33.2 Major depressive disorder, recurrent severe without psychotic features; E11.40 Type 2 diabetes mellitus with diabetic neuropathy, unspecified; N18.9 Chronic kidney disease, unspecified; E11.42 Type 2 diabetes mellitus with diabetic polyneuropathy; E11.51 Type 2 diabetes mellitus with diabetic peripheral angiopathy without gangrene; E83.42 Hypomagnesemia; E87.6 Hypokalemia; J45.909 Unspecified asthma, uncomplicated; Z91.19 Patient's noncompliance with other medical treatment and regimen; E11.610 Type 2 diabetes mellitus with diabetic neuropathic arthropathy; N40.0 Benign prostatic hyperplasia without lower urinary tract symptoms; Z79.899 Other long term (current) drug therapy; E66.01 Morbid (severe) obesity due to excess calories; F41.9 Anxiety disorder, unspecified
CPT/HCPCS: 36415; 36600; 71045-TC; 73701-TC; 73723-TC; 80048-TC; 80053-TC; 80061-TC; 80202-TC; 81000-TC; 82803-TC; 83605-TC; 83735-TC; 83880; 84100-TC; 84443-TC; 84484-TC; 85025-TC; 85378-TC; 85730-TC; 86360; 87040-TC; 87070-TC; 87081-TC; 87086-TC; 93970-TC; 94760-TC; 94799-TC; A4216; A4217; A6253; A6403; A9579; G0378; J1170; J1650; J1940; J2060; J2543; J3370; J3475; J3490; J7030; J7040; J7050; J7060; Q9967

== ENCOUNTER 2019-01-19 19:15 | Inpatient (IN) | payer MEDICARE ==
[~2019-01-19] VITALS: Ht 175.3 cm; Wt 121.8 kg
[2019-01-19 10:00] VITALS: BP 140/94
[~2019-01-19 19:15] MED LIST changes: +ABAC1TAB17 PO; -ABAC1TAB3 PO; +ALBU18HF2 IH; -AMOX-430 PO; -BUDE10.22 INH; +CALC-15 PO; +CARV25TA PO; -CARV25TA2 PO; -CYAN100071 PO; +CYAN500T65 PO; -GABA-532 PO; +GABA-534 PO; +MULT-661 PO; -SERT100T PO; +SERT100T12 PO; +TAMS-12 PO; -TAMS0.4C34 PO; +TEST200V3 IM
--- NOTE | 2019-01-19 19:47 | NUR ---
RECEIVED PATIENT FROM HOME AMBULATORY WITH CANE. C/C OF R FOOT CELLULITIS WITH PAIN 4/10. PATIENT ALSO CLAIMED HAVING SCOLIOSIS WITH 7/[address] ON BED COMFORTABLY.
--- NOTE | 2019-01-19 19:53 | NUR ---
SEEN AND EXAMINED BY
[2019-01-19 20:23] LABS: BASOPHILS # (AUTO) 0.1 /CMM (0.0-0.2); BASOPHILS % (AUTO) 0.9 % (0.0-2.0); EOSINOPHILS % (AUTO) 3.2 % (0.0-6.0); HEMATOCRIT 31 % (39-51); HEMOGLOBIN 10.1 g/dL (13.5-17.5); LYMPHOCYTES # (AUTO) 1.4 /CMM (0.8-4.8); LYMPHOCYTES % (AUTO) 11.7 % (20.0-44.0); MEAN CORPUSCULAR HGB CONC 33 g/dl (31.0-36.0); MEAN CORPUSCULAR VOLUME 95 fL (80-96); MONOCYTES # (AUTO) 1.5 /CMM (0.1-1.30); MONOCYTES % (AUTO) 12.9 % (2.0-12.0); NEUTROPHILS # (AUTO) 8.4 /CMM (1.8-8.9); NEUTROPHILS % (AUTO) 71.3 % (43.0-81.0); PLATELET COUNT (AUTO) 406 /CMM (150-450); RED BLOOD CELL COUNT(AUTO) 3.25 MIL/uL (4.5-6.0); WHITE BLOOD COUNT (AUTO) 11.7 K/uL (4.3-11.0)
[2019-01-19 20:37] LABS: CALCIUM, SERUM 9.1 mg/dL (8.5-10.1); CARBON DIOXIDE 27 mmol/L (21-32); CHLORIDE 101 mmol/L (98-107); CREATININE 1.6 mg/dL (0.6-1.3); GLUCOSE 92 mg/dL (74-106); POTASSIUM 4.2 mmol/L (3.5-5.1); SODIUM SERUM 138 mmol/L (136-145); UREA NITROGEN, BLOOD 27 mg/dL (7-18)
[2019-01-19 20:42] LABS: ALANINE AMINOTRANSFERASE 18 U/L (12-78); ALBUMIN 3.4 g/dL (3.4-5.0); ALKALINE PHOSPHATASE 71 U/L (46-116); ASPARTATE AMINOTRANSFERASE 12 U/L (15-37); BILIRUBIN,DIRECT 0.1 mg/dL (0.0-0.2); BILIRUBIN,TOTAL 0.3 mg/dL (0.2-1.0); TOTAL PROTEIN, SERUM 7.6 g/dL (6.4-8.2)
--- NOTE | 2019-01-19 20:57 | NUR ---
PATIENT FOR ADMISSION MS [id number]. REPORT GIVEN TO DAJUAN FERNANDEZ.
[2019-01-19] MEDS ORDERED: ALBUTEROL FS 2.5 MG/3 ML VIAL.NEB NEB PRN (21:00)
[2019-01-19] MEDS ORDERED: PIPERACILLIN /TAZOBACTAM 3.375 G in IV D5W 50 ML IV ONE (21:00)
[2019-01-19] MEDS ORDERED: ACETAMINOPHEN 325 MG TABLET PO PRN (21:00)
[2019-01-19] MEDS ORDERED: ONDANSETRON HCL/PF 4 MG/2 ML VIAL IVP PRN (21:00)
[2019-01-19] MEDS ORDERED: DEXTROSE 50%-WATER 50 ML DISP.SYRIN IV PRN (21:00)
[2019-01-19] MEDS ORDERED: VANCOMYCIN 1 GM in IV D5W 250 ML IV ONE (21:00)
[2019-01-19] MEDS ORDERED: MORPHINE SULFATE INJ 2 MG/ML DISP.SYRIN IV PRN (21:00)
--- NOTE | 2019-01-19 21:20 | NUR ---
PATIENT TRANSPORTED BY 1 ER STAFF VIA [facility].
[2019-01-19] MEDS: BLOOD SUGAR DIAGNOSTIC 1 EACH STRIP IN SCH (21:55)
[2019-01-19 22:00] VITALS: BP 140/94
[2019-01-19] MEDS ORDERED: PIPERACILLIN /TAZOBACTAM 3.375 G VIAL IV ONE (22:15)
[2019-01-19] MEDS ORDERED: VANCOMYCIN 1 GM VIAL ONE (22:16)
[2019-01-19] MEDS: PIPERACILLIN /TAZOBACTAM 3.375 G in IV D5W 50 ML IV SCH (22:30)
[2019-01-19] MEDS: IV NS 0.9% 1,000 ML IV PRN (23:19)
[2019-01-19] MEDS: HYDROCODONE/APAP 5/325MG 1 EACH TABLET PO PRN (23:23)
[2019-01-20] MEDS: ZOLPIDEM TARTRATE 5 MG TABLET PO PRN (00:23)
[2019-01-20] MEDS ORDERED: PIPERACILLIN /TAZOBACTAM 3.375 G VIAL IV ONE (04:19)
[2019-01-20] MEDS: PIPERACILLIN /TAZOBACTAM 3.375 G in IV D5W 50 ML IV SCH ×3 (04:53→17:00)
[2019-01-20] MEDS: HYDROCODONE/APAP 5/325MG 1 EACH TABLET PO PRN ×4 (05:22→21:47)
[2019-01-20] MEDS: BLOOD SUGAR DIAGNOSTIC 1 EACH STRIP IN SCH ×4 (06:25→21:28)
--- NOTE | 2019-01-20 06:36 | NUR ---
oob watching a movie on his phone sitting in a chair. medicated with norco tab 1 and effective for his scoliosis pain. he ambulates with a cane and is steady on his legs. slept for 6 hours this night. gets in and out of bed independently right foot wound cleaned with NS and sterile dressing applied on admission. when in bed instructed to elevate on pillows states he wears dentures but did not bring them with him.
--- NOTE | 2019-01-20 07:21 | NUR ---
RN OPENING NOTE PT WAS RECEIVED IN BED AT LOWEST AND LOCKED POSITION WITH SIDE RAILS UP X2, A/O X3 BREATHING EVEN AND UNLABORED ON RA WITH NO S/S OF ANY DISTRESS OR PAIN AT THIS TIME, IV IS PATENT AND INTACT, NOTED TO BE AMBULATORY AND WITH OPEN WOUND ON RIGHT FOOT WITH DRESSING INTACT, SAFETY PRECAUTIONS IN PLACE, CALL LIGHT IN REACH, WILL MONITOR ACCORDINGLY
[2019-01-20] MEDS ORDERED: FEE PK DOSING 1 MIN EA MC ONE (07:42)
[2019-01-20 07:59] LABS: BASOPHILS # (AUTO) 0.1 /CMM (0.0-0.2); BASOPHILS % (AUTO) 0.8 % (0.0-2.0); EOSINOPHILS % (AUTO) 3.9 % (0.0-6.0); HEMATOCRIT 30 % (39-51); LYMPHOCYTES # (AUTO) 1.2 /CMM (0.8-4.8); LYMPHOCYTES % (AUTO) 11.8 % (20.0-44.0); MEAN CORPUSCULAR HGB CONC 33 g/dl (31.0-36.0); MEAN CORPUSCULAR VOLUME 95 fL (80-96); MONOCYTES # (AUTO) 1.4 /CMM (0.1-1.30); MONOCYTES % (AUTO) 13.7 % (2.0-12.0); NEUTROPHILS # (AUTO) 7.1 /CMM (1.8-8.9); NEUTROPHILS % (AUTO) 69.8 % (43.0-81.0); PLATELET COUNT (AUTO) 420 /CMM (150-450); RED BLOOD CELL COUNT(AUTO) 3.19 MIL/uL (4.5-6.0); WHITE BLOOD COUNT (AUTO) 10.2 K/uL (4.3-11.0)
[2019-01-20 08:00] VITALS: BP 135/91
[2019-01-20 08:14] LABS: CALCIUM, SERUM 8.9 mg/dL (8.5-10.1); CREATININE 1.8 mg/dL (0.6-1.3); MAGNESIUM 1.4 mg/dL (1.8-2.4); POTASSIUM 4.3 mmol/L (3.5-5.1)
[2019-01-20] MEDS: LACTOBACILLUS RHAMNOSUS GG 1 EACH CAP.SPRINK PO SCH ×2 (08:57→16:28)
[2019-01-20] MEDS: ASPIRIN 81 MG TAB.CHEW PO SCH (08:58)
[2019-01-20] MEDS: CYANOCOBALAMIN 500 MCG TABLET PO SCH (08:58)
[2019-01-20] MEDS: CALCIUM CARB 600MG /VIT D 1 EACH TABLET PO SCH (08:58)
[2019-01-20] MEDS: ARIPIPRAZOLE 5 MG TABLET PO SCH (08:58)
[2019-01-20] MEDS: MULTIVITAMINS,THERAGRAN 1 UDTAB TABLET PO SCH (08:58)
[2019-01-20] MEDS: SERTRALINE HCL 50 MG TABLET PO SCH (08:59)
[2019-01-20] MEDS: AMLODIPINE BESYLATE 10 MG TABLET PO SCH (09:00)
[2019-01-20] MEDS ORDERED: ACYCLOVIR 800 MG TABLET PO SCH (09:00)
[2019-01-20] MEDS ORDERED: NEVIRAPINE 200 MG TABLET PO SCH (09:00)
[2019-01-20] MEDS ORDERED: CARVEDILOL 25 MG TABLET PO SCH (09:00)
[2019-01-20] MEDS: CARVEDILOL 12.5 MG TABLET PO SCH ×2 (09:01→20:48)
--- NOTE | 2019-01-20 09:07 | NUR ---
RN NOTE PT ASKED IF HE COULD PROVIDE MEDICATION FROM HOME THAT WAS REQUESTED FROM OUR PHARMACY. HE STATED HE MAY BE ABLE TO HAVE SOMEONE BRING THEM IN LATER THIS DAY AND HE WILL NOTIFY ME IF HE RECEIVES MEDICATIONS.
[2019-01-20] MEDS: Magnesium 1GM/D5W 100ML PREMIX 100 ML IV SCH ×2 (09:35→10:48)
[2019-01-20] MEDS: INSULIN REGULAR, HUMAN 100 UNIT/ML 3 ML VIAL SQ PRN ×3 (11:39→21:28)
[2019-01-20] MEDS: VANCOMYCIN 1.25 GM in IV D5W 250 ML IV SCH (14:01)
[2019-01-20 16:00] VITALS: BP 116/79
[2019-01-20] MEDS: IV NS 0.9% 1,000 ML IV PRN (16:54)
--- NOTE | 2019-01-20 17:36 | NUR ---
RN NOTE PT BLOOD SUGAR WAS TAKEN AND NOTED TO BE 83, NO INSULIN GIVEN OR REQUIRED PER S/S, WILL MONITOR ACCORDINGLY AND ENCOURAGE FOOD INTAKE
--- NOTE | 2019-01-20 18:23 | NUR ---
RN CLOSING NOTE PT IN BED AT LOWEST AND LOCKED POSITION WITH SIDE RAILS UP X2, A/O X3 BREATHING EVEN AND UNLABORED ON WITH NO DISTRESS OR PAIN AT THIS TIME, IV IS PATENT AND INTACT, WOUND CX JUST COLLECTED AND DRESSING CHANGED, SAFETY PRECAUTIONS IN PLACE, CALL LIGHT IN REACH, ALL NEEDS ATTENDED TO, WILL ENDORSE TO NIGHT RN FOR RILEY.
[2019-01-20] MEDS: CEFEPIME 1 GM in IV D5W 50 ML IV SCH (18:32)
--- NOTE | 2019-01-20 19:00 | NUR ---
RN MS OPENING NOTES RECEIVED PATIENT IN BED AWAKE ALERT AND ORIENTED X4 , RESPIRATIONS EVEN AND UNLABORED WITH EQUAL RISE AND FALL OF CHEST, AT THIS TIME STATES " WHEN STILL NO PAIN IF AND IF MOVING AT THIS TIME 4/10 TOLERABLE". CURRENTLY REMAINS COMFORTABLE IN BED NO PAIN MEDICATION WANTED AT THIS TIME. IV SITE TO LEFT FA #20G INTACT AND PATENT, NO REDNESS,NO INFILTRATION PRESENT, IVF RUNNING ORDERED, DRESSING REMAINS CLEAN, DRY AND INTACT TO RIGHT FOOT, ORIENTED TO TO STAFF AND CALL LIGHT AND KEPT WITHIN REACH, SAFETY PRECAUTIONS IN PLACE, LOW BED AND LOCKED, ALL NEEDS ATTENDED AT THIS TIME, DISCUSSED PLAN OF CARE, WILL CONTINUE TO MONITOR AND ATTEND TO NEEDS.
[2019-01-20 19:17] LABS: APPEARANCE,URINE SL CLOUDY (CLEAR); BILIRUBIN,URINE NEGATIVE (NEGATIVE); BLOOD, URINE SMALL Ery/uL (NEGATIVE); COLOR,URINE YELLOW (YELLOW); KETONES,URINE NEGATIVE (NEGATIVE); LEUKOCYTE ESTERASE ,URINE TRACE (NEGATIVE); NITRITE, URINE NEGATIVE (NEGATIVE); PH,URINE 5.5 (5.0-8.0); PROTEIN,URINE TRACE mg/dl (NEGATIVE); UGLUCOSE NEGATIVE (NEGATIVE); UROBILINOGEN,URINE 0.2 EU/dL (0.2)
[2019-01-20 19:28] LABS: BACTERIA,URINE 2+ /HPF (None Seen); SPERM,URINE Few /HPF (None Seen); SQUAMOUS EPITHELIAL CELL,UR 0-2 /HPF (None Seen)
[2019-01-20 19:29] LABS: CREATININE, URINE 280.2 MG/DL (30.0-125.0); URINE TOTAL PROTEIN 59.3 mg/dL (0-11.9)
[2019-01-20 20:00] VITALS: BP_SYST 100; BP_SYST 116; BP_DIAS 62; BP_DIAS 76
[2019-01-20] MEDS: TAMSULOSIN 0.4 MG CAP.SR.24H PO SCH (21:15)
[2019-01-20] MEDS: GABAPENTIN 300 MG CAPSULE PO SCH (21:15)
[2019-01-20 21:28] LABS: EOSINOPHIL,URINE None Seen
--- NOTE | 2019-01-20 21:48 | NUR ---
RN MS NOTES PATIENT COMPLAINT OF PAIN TO RIGHT FOOT 5/10 REQUESTING FOR PAIN MEDICATION NORCO NORCO PRN GIVEN ORDERED VS WNL.
--- NOTE | 2019-01-20 22:01 | NUR ---
RN MS NOTES URINE RESULTS REPORTED TO HOSPITALIST NO NEW ORDERS AT THIS TIME.
[2019-01-21] MEDS: HYDROCODONE/APAP 5/325MG 1 EACH TABLET PO PRN ×4 (01:56→20:14)
--- NOTE | 2019-01-21 01:57 | NUR ---
RN MS NOTES PATIENT COMPLAINT OF PAIN TO RIGHT FOOT 5 REQUESTING FOR PAIN MEDICATION NORCO NORCO PRN GIVEN ORDERED VS WNL. WILL CONTINUE TO MONITOR FOR EFFECTIVENESS, DRESSING CHANGED AT THIS TIME DUE TO SOILED, WOUND CLEANSED AND KEPT DRY AND COVERED.
[2019-01-21] MEDS: BLOOD SUGAR DIAGNOSTIC 1 EACH STRIP IN SCH ×4 (05:56→22:09)
[2019-01-21] MEDS: INSULIN REGULAR, HUMAN 100 UNIT/ML 3 ML VIAL SQ PRN ×3 (05:56→17:10)
[2019-01-21 06:43] LABS: BASOPHILS # (AUTO) 0.1 /CMM (0.0-0.2); EOSINOPHILS % (AUTO) 4.1 % (0.0-6.0); HEMATOCRIT 29 % (39-51); HEMOGLOBIN 9.9 g/dL (13.5-17.5); LYMPHOCYTES # (AUTO) 1.1 /CMM (0.8-4.8); LYMPHOCYTES % (AUTO) 13.5 % (20.0-44.0); MEAN CORPUSCULAR HGB CONC 34 g/dl (31.0-36.0); MEAN CORPUSCULAR VOLUME 94 fL (80-96); MONOCYTES % (AUTO) 11.5 % (2.0-12.0); NEUTROPHILS # (AUTO) 5.8 /CMM (1.8-8.9); NEUTROPHILS % (AUTO) 69.9 % (43.0-81.0); PLATELET COUNT (AUTO) 399 /CMM (150-450); RED BLOOD CELL COUNT(AUTO) 3.11 MIL/uL (4.5-6.0); WHITE BLOOD COUNT (AUTO) 8.3 K/uL (4.3-11.0)
--- NOTE | 2019-01-21 07:05 | NUR ---
RN MS CLOSING NOTES PATIENT IN BED AWAKE ALERT AND ORIENTED X4 , RESPIRATIONS EVEN AND UNLABORED WITH EQUAL RISE AND FALL OF CHEST. CURRENTLY REMAINS COMFORTABLE IN BED, NO PAIN AT THIS TIME, IV SITE TO LEFT FA #20G INTACT AND PATENT, NO REDNESS,NO INFILTRATION PRESENT, IVF RUNNING ORDERED, DRESSING REMAINS CLEAN, DRY AND INTACT TO RIGHT FOOT, CALL LIGHT KEPT WITHIN REACH, SAFETY PRECAUTIONS IN PLACE, LOW BED AND LOCKED, ALL NEEDS ATTENDED AT THIS TIME, WILL CONTINUE TO MONITOR AND ATTEND TO NEEDS AND ENDORSE TO NEXT SHIFT, ALL DUE MEDS GIVEN WITH NO ADVERSE REACTIONS.
[2019-01-21 07:10] LABS: ALBUMIN 3.1 g/dL (3.4-5.0); BILIRUBIN,TOTAL 0.3 mg/dL (0.2-1.0); CALCIUM, SERUM 8.4 mg/dL (8.5-10.1); CREATININE 2.1 mg/dL (0.6-1.3); PHOSPHORUS 4.4 mg/dL (2.5-4.9); POTASSIUM 3.7 mmol/L (3.5-5.1); TOTAL PROTEIN, SERUM 7.7 g/dL (6.4-8.2)
--- NOTE | 2019-01-21 07:12 | NUR ---
RN OPENING NOTE PT WAS RECEIVED IN BED AT LOWEST AND LOCKED POSITION WITH SIDE RAILS UP X2, A/O X3 BREATHING EVEN AND UNLABORED ON RA WITH NO S/S OF ANY DISTRESS OR PAIN AT THIS TIME, IV IS PATENT AND INTACT, AMBULATORY AND WITH OPEN WOUND ON RIGHT FOOT WITH DRESSING INTACT, SAFETY PRECAUTIONS IN PLACE, CALL LIGHT IN REACH, WILL MONITOR ACCORDINGLY
[2019-01-21 08:00] VITALS: BP 106/69
[2019-01-21] MEDS: CEFEPIME 1 GM in IV D5W 50 ML IV SCH ×2 (08:17→21:38)
[2019-01-21] MEDS: SERTRALINE HCL 50 MG TABLET PO SCH (08:34)
[2019-01-21] MEDS: IV NS 0.9% 1,000 ML IV PRN (08:34)
[2019-01-21] MEDS: MULTIVITAMINS,THERAGRAN 1 UDTAB TABLET PO SCH (08:35)
[2019-01-21] MEDS: ASPIRIN 81 MG TAB.CHEW PO SCH (08:35)
[2019-01-21] MEDS: CYANOCOBALAMIN 500 MCG TABLET PO SCH (08:36)
[2019-01-21] MEDS: LACTOBACILLUS RHAMNOSUS GG 1 EACH CAP.SPRINK PO SCH ×2 (08:36→16:28)
[2019-01-21] MEDS: CALCIUM CARB 600MG /VIT D 1 EACH TABLET PO SCH (08:36)
[2019-01-21] MEDS: ARIPIPRAZOLE 5 MG TABLET PO SCH (08:36)
[2019-01-21] MEDS: AMLODIPINE BESYLATE 10 MG TABLET PO SCH (08:37)
[2019-01-21] MEDS: CARVEDILOL 12.5 MG TABLET PO SCH ×2 (08:38→21:38)
[2019-01-21] MEDS: VANCOMYCIN 1.25 GM in IV D5W 250 ML IV SCH (08:39)
--- NOTE | 2019-01-21 11:58 | NUR ---
RN NOTE PT BLOOD GLUCOSE WAS TAKEN AND NOTED TO BE 121, NO INSULIN REQUIRED OR GIVEN PER SLIDING SCALE
[2019-01-21 16:00] VITALS: BP 113/75
--- NOTE | 2019-01-21 17:00 | NUR ---
RN NOTE PT BLOOD SUGAR TAKEN AND NOTED TO BE 82, NO INSULIN GIVEN OR REQUIRED PER SLIDING SCALE, WILL MONITOR ACCORDINGLY
--- NOTE | 2019-01-21 18:26 | NUR ---
RN CLOSING NOTE PT IN BED AT LOWEST AND LOCKED POSITION WITH SIDE RAILS UP X2, A/O X3 BREATHING EVEN AND UNLABORED ON WITH NO DISTRESS OR PAIN AT THIS TIME, IV IS PATENT AND INTACT, SAFETY PRECAUTIONS IN PLACE, CALL LIGHT IN REACH, ALL NEEDS ATTENDED TO, WILL ENDORSE TO NIGHT RN FOR RILEY.
[2019-01-21 20:00] VITALS: BP 154/93
--- NOTE | 2019-01-21 22:01 | NUR ---
BS 86,gave two packs of sugar to disolved in mouth,patient is not eating anything
--- NOTE | 2019-01-21 22:10 | NUR ---
BS 86 GAVE TWO PACKS OF SUGAR TO PUT IN HIS MOUTH SINCE PATIENT IS NOT EATING ANYTHING
[2019-01-21] MEDS: GABAPENTIN 300 MG CAPSULE PO SCH (22:19)
[2019-01-21] MEDS: TAMSULOSIN 0.4 MG CAP.SR.24H PO SCH (22:19)
[2019-01-22] MEDS: VANCOMYCIN 1.25 GM in IV D5W 250 ML IV SCH (02:59)
[2019-01-22] MEDS: HYDROCODONE/APAP 5/325MG 1 EACH TABLET PO PRN ×4 (03:36→20:52)
--- NOTE | 2019-01-22 04:05 | NUR ---
Attempted to put a Wet to dry dressing on Pt's right foot but requested a dry dressing,saying that it weeps.
--- NOTE | 2019-01-22 05:57 | NUR ---
Did not cover Blood Sugar of 119,patient is not eating anything,only had some Gatorade
[2019-01-22 06:23] LABS: CALCIUM, SERUM 8.5 mg/dL (8.5-10.1); CREATININE 2.1 mg/dL (0.6-1.3); POTASSIUM 4.2 mmol/L (3.5-5.1)
--- NOTE | 2019-01-22 07:31 | NUR ---
MS RN OPENING NOTES RECEIVED PT ASLEEP IN BED, EASILY AROUSABLE. PT IS A/O 4 AND ABLE TO VERBALIZED NEEDS, DENIES PAIN OR ANY DISCOMFORTS AT THIS TIME. ON ROOM AIR, BREATHING EVEN AND UNLABORED. IV ACCESS ON LFA PATENT AND INTACT, IVF INFUSING ORDERED, NO S/S OF INFILTRATIONS NOTED. SAFETY PRECAUTIONS IN PLACE. BED IN LOW LOCKED POSITION WITH SR UP X2. CALL LIGHT IN REACH. WILL CONTINUE TO MONITOR PT ACCORDINGLY.
[2019-01-22] MEDS: BLOOD SUGAR DIAGNOSTIC 1 EACH STRIP IN SCH ×4 (07:50→22:50)
[2019-01-22 08:06] LABS: *BASOS 1 % (Not Estab.); *BASOS, ABSOLUTE 0.1 x10E3/uL (0.0-0.2); *EOS 3 % (Not Estab.); *EOS, ABSOLUTE 0.3 x10E3/uL (0.0-0.4); *HCT 28.1 % (37.5-51.0); *HGB 9.2 g/dL (13.0-17.7); *IMMATURE GRANULOCYTES 1 % (Not Estab.); *IMMATURE GRANULOCYTES(ABS) 0.1 x10E3/uL (0.0-0.1); *LYMPHOCYTES 13 % (Not Estab.); *LYMPHS, ABSOLUTE 1.1 x10E3/uL (0.7-3.1); *MCH 30.7 pg (26.6-33.0); *MCHC 32.7 g/dL (31.5-35.7); *MCV 94 fL (79-97); *MONOCYTES 11 % (Not Estab.); *MONOS, ABSOLUTE 0.9 x10E3/uL (0.1-0.9); *NEUTROPHILS 71 % (Not Estab.); *NEUTROPHILS, ABSOLUTE 6.4 x10E3/uL (1.4-7.0); *PLT 427 x10E3/uL (150-450); *RDW 16.3 % (12.3-15.4)
[2019-01-22 08:18] VITALS: BP 138/88
[2019-01-22] MEDS: CALCIUM CARB 600MG /VIT D 1 EACH TABLET PO SCH (08:34)
[2019-01-22] MEDS: CYANOCOBALAMIN 500 MCG TABLET PO SCH (08:34)
[2019-01-22] MEDS: LACTOBACILLUS RHAMNOSUS GG 1 EACH CAP.SPRINK PO SCH ×2 (08:35→16:56)
[2019-01-22] MEDS: ASPIRIN 81 MG TAB.CHEW PO SCH (08:35)
[2019-01-22] MEDS: MULTIVITAMINS,THERAGRAN 1 UDTAB TABLET PO SCH (08:35)
[2019-01-22] MEDS: AMLODIPINE BESYLATE 10 MG TABLET PO SCH (08:35)
[2019-01-22] MEDS: CARVEDILOL 12.5 MG TABLET PO SCH ×2 (08:35→22:02)
[2019-01-22] MEDS: ARIPIPRAZOLE 5 MG TABLET PO SCH (08:35)
[2019-01-22] MEDS: SERTRALINE HCL 50 MG TABLET PO SCH (08:36)
[2019-01-22] MEDS: CEFEPIME 1 GM in IV D5W 50 ML IV SCH ×2 (08:36→20:49)
[2019-01-22 10:06] LABS: *% CD 4 POS. LYMPH 41.1 % (30.8-58.5); *% CD 8 POS. LYMPH 34.4 % (12.0-35.5); *ABSOLUTE CD 4 HELPER 452 /uL (359-1519); *ABSOLUTE CD 8 SUPPRESSOR 378 /uL (109-897); *CD4/CD8 RATIO 1.19 (0.92-3.72)
--- NOTE | 2019-01-22 13:32 | NUR ---
M/S RN NOTES WOUND EXCISION AND DEBRIDEMENT PROCEDURE DONE ON RIGHT FOOT BY LAUREANO VASQUEZ. PHOTO TAKEN AFTER AND FILED IN CHART. DRESSING APPLIED WRAPPED WITH GRECIA WRAP.
[2019-01-22] MEDS: IV NS 0.9% 1,000 ML IV PRN (13:43)
--- NOTE | 2019-01-22 16:00 | NUR ---
M/S RN NOTES FOLLOWED UP PATIENTS HOME MEDS (EPZICOM TAB AND VIRAMUNE TAB) x2, PATIENT STATED FRIEND WAS GOING TO BRING TO HOSPITAL. FRIEND STILL HAS NOT COME TO HOSPITAL TO DELIVER. PLEASE FOLLOW UP. WILL ENDORSE TO INCOMING SHIFT.
[2019-01-22 16:23] VITALS: BP 137/89
[2019-01-22] MEDS ORDERED: BISACODYL (5 MG) 5 MG TABLET.DR PO PRN (17:30)
--- NOTE | 2019-01-22 18:00 | NUR ---
M/S RN NOTES PATIENT FOR MRI TO RULE OUT OSTEOMYELITIS ON RIGHT FOOT. CALLED TO SEE IF IT WAS GOING TO BE DONE TODAY, BUT NO ANSWER. MESSAGE WAS LEFT. MRI CHECKLIST DONE.
--- NOTE | 2019-01-22 18:43 | NUR ---
MS RN CLOSING NOTES PATIENT IS AWAKE AND ORIENTED x4, RESTING IN BED. ABLE TO VERBALIZE NEEDS AND DENIES ANY PAIN OR DISCOMFORT AT THE MOMENT. NO SIGNS OF DISTRESS NOTED.NEW IV SITE INSERTED, PATENT AND IN TACT R HAND #22. IVF OF NS AT 100ML/ HR CURRENTLY RUNNING. SAFETY PRECAUTIONS ARE IN PLACE WITH BED LOCKED AND IN LOWEST POSITION AND CALL LIGHT WITHIN REACH. WILL ENDORSE TO ONCOMING SHIFT ABOUT RILEY.
--- NOTE | 2019-01-22 19:00 | NUR ---
RN MS OPENING NOTES RECEIVE PATIENT IN BED AWAKE ALERT AND ORIENTED x4, RESPIRATIONS EVEN AND UNLABORED WITH EQUAL RISE AND FALL OF CHEST, AT THIS TIME DENIES ANY PAIN OR DISCOMFORT, IV SITE TO RIGHT HAND #22 G INTACT AND PATENT, NO REDNESS, NO INFILTRATION PRESENT, IVF RUNNING ORDERED, DRESSING TO LEFT FOOT REMAINS C/D/I, ORIENTED TO STAFF AND CALL LIGHT AND KEPT WITHIN REACH, SAFETY PRECAUTIONS IN PLACE, LOW BED AND LOCKED ALL NEEDS ATTENDED AT THIS TIME WILL CONTINUE TO MONITOR AND ATTEND TO NEEDS.
[2019-01-22 20:00] VITALS: BP 159/98
--- NOTE | 2019-01-22 20:52 | NUR ---
RN MS NOTES PATIENT COMPLAINT OF PAIN STATES "7/10 ACHING PAIN TO LEFT FOOT AND BACK CAN I HAVE NORCO." VS WNL. NORCO PRN GIVEN WILL CONTINUE TO MONITOR FOR EFFECTIVENESS.
[2019-01-22] MEDS: TAMSULOSIN 0.4 MG CAP.SR.24H PO SCH (22:02)
[2019-01-22] MEDS: GABAPENTIN 300 MG CAPSULE PO SCH (22:02)
[2019-01-22] MEDS: INSULIN REGULAR, HUMAN 100 UNIT/ML 3 ML VIAL SQ PRN (22:50)
--- NOTE | 2019-01-22 23:08 | NUR ---
RN MS NOTES PATIENT COMPLAINT OF FEELING CONSTIPATED ,BLOATED STATES " WANTS INSTANT RELIEF REQUESTED FOR A FLEET ENEMA" TYLER MADE AWARE NEW ORDER NOTED AND CARRIED OUT FLEET ENEMA X .
[2019-01-22] MEDS ORDERED: NA PHOS,M-B/NA PHOS,DI-BA 1 EA ENEMA RC ONE (23:30)
[2019-01-23 06:42] LABS: CALCIUM, SERUM 8.3 mg/dL (8.5-10.1); CREATININE 2.3 mg/dL (0.6-1.3); POTASSIUM 4.2 mmol/L (3.5-5.1)
--- NOTE | 2019-01-23 06:55 | NUR ---
RN MS CLOSING NOTES PATIENT IN BED AWAKE ALERT AND ORIENTED x4, RESPIRATIONS EVEN AND UNLABORED WITH EQUAL RISE AND FALL OF CHEST, AT THIS TIME DENIES ANY PAIN OR DISCOMFORT, IV SITE TO RIGHT HAND #22 G INTACT AND PATENT, NO REDNESS, NO INFILTRATION PRESENT, IVF WITH PERIODS OF OFF AND ON DUE TO PATIENT WANTING TO USE RESTROOM TO ATTEMPT TO HAVE BM AFTER ENEMA, DRESSING TO LEFT FOOT REMAINS C/D/I, CALL LIGHT KEPT WITHIN REACH, SAFETY PRECAUTIONS IN PLACE, LOW BED AND LOCKED ALL NEEDS ATTENDED AT THIS TIME WILL CONTINUE TO MONITOR AND ATTEND TO NEEDS AND ENDORSE TO NEXT SHIFT, PRN 02 GIVEN FOR COMFORT.
[2019-01-23] MEDS: INSULIN REGULAR, HUMAN 100 UNIT/ML 3 ML VIAL SQ PRN (07:31)
[2019-01-23] MEDS: BLOOD SUGAR DIAGNOSTIC 1 EACH STRIP IN SCH ×4 (07:31→21:48)
[2019-01-23 08:00] VITALS: BP 149/82
[2019-01-23 08:01] VITALS: BP 149/82
[2019-01-23] MEDS: CARVEDILOL 12.5 MG TABLET PO SCH ×2 (08:18→20:31)
[2019-01-23] MEDS: CEFEPIME 1 GM in IV D5W 50 ML IV SCH ×2 (08:18→20:31)
[2019-01-23] MEDS: ARIPIPRAZOLE 5 MG TABLET PO SCH (08:19)
[2019-01-23] MEDS: ASPIRIN 81 MG TAB.CHEW PO SCH (08:19)
[2019-01-23] MEDS: AMLODIPINE BESYLATE 10 MG TABLET PO SCH (08:19)
[2019-01-23] MEDS: CALCIUM CARB 600MG /VIT D 1 EACH TABLET PO SCH (08:19)
[2019-01-23] MEDS: MULTIVITAMINS,THERAGRAN 1 UDTAB TABLET PO SCH (08:19)
[2019-01-23] MEDS: CYANOCOBALAMIN 500 MCG TABLET PO SCH (08:20)
[2019-01-23] MEDS: LACTOBACILLUS RHAMNOSUS GG 1 EACH CAP.SPRINK PO SCH ×2 (08:20→17:19)
[2019-01-23] MEDS: SERTRALINE HCL 50 MG TABLET PO SCH (08:20)
[2019-01-23] MEDS ORDERED: VANCOMYCIN 1 GM in IV D5W 250 ML IV SCH (10:00)
--- NOTE | 2019-01-23 11:15 | NUR ---
REMAINED PATIENT TO PROVIDE HOME MEDICATIONS. PATIENT'S PARTNER WILL BRING TODAY.
--- NOTE | 2019-01-23 12:15 | NUR ---
WOUND CARE AND DRESSING CHANGED
[2019-01-23] MEDS: HYDROCODONE/APAP 5/325MG 1 EACH TABLET PO PRN ×2 (14:28→20:10)
[2019-01-23 16:20] VITALS: BP 104/58
--- NOTE | 2019-01-23 18:55 | NUR ---
PATIENT IN BED. A/OX3. ON ROOM AIR SATURATING ABOVE 95%. RESPIRATIONS ARE EVEN AND UNLABORED. NO SOB NOTED. NO C/O PAIN. IV ACCESS REMAINS IN LFA #24 PATENT AND SALINE LOCKED. BED IS LOW AND LOCKED, SIDE RAILS UP X2, HOB FLAT. CALL LIGHT WITHIN REACH. WILL ENDORSE TO NEXT SHIFT FOR RILEY.
--- NOTE | 2019-01-23 19:20 | NUR ---
MS/RN NOTES RECEIVED PT. LYING IN BED RESTING. PT. IS EASILY AROUSABLE TO NAME. PT. IS AWAKE, ALERT AND ORIENTED X3. BREATHING EVEN AND UNLABORED ON ROOM AIR. NO SOB, RESPIRATORY DISTRESS OR COMPLAINTS OF PAIN NOTED AT THIS TIME. PT. WITH RIGHT HAND 22 GAUGE IV SALINE LOCK PRESENT, PATENT AND INTACT. BED LOCKED AND IN LOWEST POSITION, SIDE RAILS UP X2, CALL LIGHT WITHIN REACH, WILL CONTINUE TO MONITOR.
[2019-01-23 20:00] VITALS: BP 143/81
[2019-01-23] MEDS: GABAPENTIN 300 MG CAPSULE PO SCH (21:33)
[2019-01-23] MEDS: TAMSULOSIN 0.4 MG CAP.SR.24H PO SCH (21:33)
[2019-01-23] MEDS: ZOLPIDEM TARTRATE 5 MG TABLET PO PRN (23:40)
[2019-01-24] MEDS: HYDROCODONE/APAP 5/325MG 1 EACH TABLET PO PRN ×2 (03:07→07:12)
--- NOTE | 2019-01-24 06:28 | NUR ---
MS/RN NOTES PT. IS LYING IN BED RESTING. BREATHING EVEN AND UNLABORED ON ROOM AIR. NO SOB, RESPIRATORY DISTRESS OR COMPLAINTS OF PAIN NOTED AT THIS TIME. PT. WITH RIGHT HAND 22 GAUGE IV SALINE LOCK PRESENT, PATENT AND INTACT. ALL PT. NEEDS MET. BED LOCKED AND IN LOWEST POSITION, SIDE RAILS UP X2, CALL LIGHT WITHIN REACH, WILL ENDORSE TO DAYSHIFT NURSE FOR CONTINUITY OF CARE.
[2019-01-24 06:37] LABS: ALBUMIN 2.9 g/dL (3.4-5.0); BILIRUBIN,TOTAL 0.4 mg/dL (0.2-1.0); CALCIUM, SERUM 8.3 mg/dL (8.5-10.1); CREATININE 2.4 mg/dL (0.6-1.3); POTASSIUM 4.1 mmol/L (3.5-5.1); TOTAL PROTEIN, SERUM 7.2 g/dL (6.4-8.2)
[2019-01-24] MEDS: BLOOD SUGAR DIAGNOSTIC 1 EACH STRIP IN SCH ×3 (06:55→17:30)
--- NOTE | 2019-01-24 07:20 | NUR ---
M/S RN NOTES PATIENT AWAKE SITTING IN CHAIR, PATIENT ON NASAL CANULA WITH O2 AT 2LPM, NO RESPIRATORY DISTRESS, NO C/O PAIN AT THIS TIME. PATIENT'S IV ACCESS SITE INTACT AND PATENT. SKIN WARM TO TOUCH. DRESSING ON THE RIGHT FOOT C/D/I. PATIENT'S NEEDS ATTENDED. BED ON LOWEST LOCKED POSITION, CALL LIGHT WITHIN REACH. WILL CONTINUE TO MONITOR.
[2019-01-24 08:00] VITALS: BP 140/93
[2019-01-24] MEDS: CEFEPIME 1 GM in IV D5W 50 ML IV SCH (09:08)
[2019-01-24] MEDS: CYANOCOBALAMIN 500 MCG TABLET PO SCH (09:19)
[2019-01-24] MEDS: LACTOBACILLUS RHAMNOSUS GG 1 EACH CAP.SPRINK PO SCH ×2 (09:19→17:00)
[2019-01-24] MEDS: CARVEDILOL 12.5 MG TABLET PO SCH (09:21)
[2019-01-24] MEDS: SERTRALINE HCL 50 MG TABLET PO SCH (09:21)
[2019-01-24] MEDS: ASPIRIN 81 MG TAB.CHEW PO SCH (09:22)
[2019-01-24] MEDS: MULTIVITAMINS,THERAGRAN 1 UDTAB TABLET PO SCH (09:22)
[2019-01-24] MEDS: AMLODIPINE BESYLATE 10 MG TABLET PO SCH (09:22)
[2019-01-24] MEDS: ARIPIPRAZOLE 5 MG TABLET PO SCH (09:22)
[2019-01-24] MEDS: CALCIUM CARB 600MG /VIT D 1 EACH TABLET PO SCH (09:25)
[2019-01-24] MEDS ORDERED: VANCOMYCIN HCL 0.75 GM in IV D5W 250 ML IV SCH (10:00)
[2019-01-24] MEDS: INSULIN REGULAR, HUMAN 100 UNIT/ML 3 ML VIAL SQ PRN (12:13)
[2019-01-24] MEDS ORDERED: EPZICOM PO SCH (14:00)
[2019-01-24] MEDS ORDERED: VIRAMUNE PO SCH (14:00)
[2019-01-24 16:00] VITALS: BP 128/77
--- NOTE | 2019-01-24 17:40 | NUR ---
M/S RN NOTES PICC LINE INSERTED BY DAJUAN LANTIGUA. TOLERATED WELL.
--- NOTE | 2019-01-24 19:00 | NUR ---
M/S RN NOTES PATIENT AWAKE IN BED, NO RESPIRATORY DISTRESS, NO C/O PAIN AT THIS TIME. VSS. PATIENT GIVEN DISCHARGE INSTRUCTIONS, VERBALIZED UNDERSTANDING. BELONGINGS ACCOUNTED FOR AND SIGNED. PATIENT'S PERIPHERAL IV REMOVED AND APPLIED PRESSURE DRESSING. PATIENT REFUSED FOR SKIN ASSESSMENT REFUSED PHOTOS. PATIENT'S RIGHT FOOT WITH DRESSING C/D/I. ENDORSED TO ONCOMING NURSE DISCHARGE INSTRUCTIONS.
--- NOTE | 2019-01-24 19:30 | NUR ---
MS ATMOSPHERIC TECHNICIAN NOTES PATIENT PICKED UP BY FRIEND NANCI. DISCHARGE PAPERS AND DISCHARGE INSTRUCTIONS ALREADY GIVEN TO PATIENT BY AM RN. ID BAND REMOVED. ACCOMPANIED BY MANAGER DECISION SUPPORT VIA WHEELCHAIR. WENT HOME IN STABLE CONDITION
[2019-01-26 05:07] LABS: *SPE A/G RATIO 0.9 (0.7-1.7); *SPE ALBUMIN 3.2 g/dL (2.9-4.4); *SPE ALPHA-1-GLOBULIN 0.5 g/dL (0.0-0.4); *SPE ALPHA-2-GLOBULIN 1.2 g/dL (0.4-1.0); *SPE BETA GLOBULIN 0.8 g/dL (0.7-1.3); *SPE GLOBULIN, TOTAL 3.6 g/dL (2.2-3.9); *SPE M-SPIKE 0.2 g/dL (Not Observed); *SPEGAMMA GLOBULIN 1.2 g/dL (0.4-1.8)
== END 2019-01-24 19:30 | disposition home health service (06) | DRG 570 ==
LOC: ER 19:16 → MED 20:53
PROVIDERS: ADMIT Nurse Practitioner Acute Care
PROC: 0JBQ0ZZ Excision of Right Foot Subcutaneous Tissue and Fascia, Open Approach (ICD-10-PCS; principal; 2019-01-22)
PROC: 02HV33Z Insertion of Infusion Device into Superior Vena Cava, Percutaneous Approach (ICD-10-PCS; 2019-01-24)
PROC: B548ZZA Ultrasonography of Superior Vena Cava, Guidance (ICD-10-PCS; 2019-01-24)
DX: L03.115 Cellulitis of right lower limb (principal); N17.0 Acute kidney failure with tubular necrosis; M86.8X7 Other osteomyelitis, ankle and foot; E11.69 Type 2 diabetes mellitus with other specified complication; L03.116 Cellulitis of left lower limb; N40.0 Benign prostatic hyperplasia without lower urinary tract symptoms; E11.610 Type 2 diabetes mellitus with diabetic neuropathic arthropathy; E11.621 Type 2 diabetes mellitus with foot ulcer; J45.909 Unspecified asthma, uncomplicated; D72.829 Elevated white blood cell count, unspecified; Z79.84 Long term (current) use of oral hypoglycemic drugs; E11.42 Type 2 diabetes mellitus with diabetic polyneuropathy; D63.8 Anemia in other chronic diseases classified elsewhere; F32.9 Major depressive disorder, single episode, unspecified; E66.01 Morbid (severe) obesity due to excess calories; Z68.39 Body mass index [BMI] 39.0-39.9, adult; G89.29 Other chronic pain; T39.395A Adverse effect of other nonsteroidal anti-inflammatory drugs [NSAID], initial encounter; Y92.009 Unspecified place in unspecified non-institutional (private) residence as the place of occurrence of the external cause; L97.519 Non-pressure chronic ulcer of other part of right foot with unspecified severity; Z79.899 Other long term (current) drug therapy; I10 Essential (primary) hypertension
CPT/HCPCS: 36415; 71045-TC; 73630-TC; 73718-TC; 76770-TC; 80048-TC; 80053-TC; 80061-TC; 80076-TC; 80202-TC; 81000-TC; 82550-TC; 82570-TC; 82962-TC; 83605-TC; 83735-TC; 83970; 84100-TC; 84155; 84155-TC; 84165; 84300-TC; 84484-TC; 85025-TC; 85730-TC; 86360; 87040-TC; 87070-TC; 87081-TC; 87086-TC; A6253; A6403; A6407; C1751; G0378; J0692; J1815; J2270; J2543; J3370; J3475; J7030; J7060